=== PATIENT | female | born 1950 | race Caucasian/White ===

== ENCOUNTER → 2017-07-10 07:57 | Outpatient (CLI) | payer MEDICARE, OTHER, SELFPAY ==
[2017-07-10 14:02] LABS: Basophils # 0.1 K/mm3 (0-0.2); Basophils % 0.6 % (0.1-2.0); Eosinophils # 0.2 K/mm3 (0.0-0.4); Hematocrit 40.1 % (37.0-47.0); Hemoglobin 12.6 g/dL (12.2-16.2); Lymphocytes # 2.1 K/mm3 (0.7-4.5); Lymphocytes % 26.2 K/mm3 (10-50); Mean Corpuscular HGB Conc 31.5 g/dL (31.8-35.4); Mean Corpuscular Volume 89.1 fl (81-99); Mean Platelet Volume 7.5 fl (7.4-10.4); Monocytes # 0.6 K/mm3 (0.1-1.0); Monocytes % 7.1 % (1.7-9.3); Neutrophils % 63.1 % (37.0-80.0); Platelet Count 297 K/mm3 (142-424); Red Cell Distribution Width 14.2 % (11.5-17.5); White Blood Count 7.8 K/mm3 (4.8-10.8)
[2017-07-10 15:18] LABS: Alanine Aminotransferase 32 U/L (12-78); Albumin Level 3.7 gm/dL (3.4-5.0); Albumin/Globulin Ratio 1.3 (1.1-1.8); Alkaline Phosphatase 94 U/L (46-116); Anion Gap 11.1 mEq/L (5-15); Aspartate Amino Transferase 24 U/L (15-37); Bilirubin,Total 0.4 mg/dL (0.2-1.0); Blood Urea Nitrogen 12 mg/dL (7-18); Calcium 8.8 mg/dL (8.5-10.1); Carbon Dioxide 28 mmol/L (21.0-32.0); Chloride 109 mmol/L (98-107); Chol/HDL Ratio 2.7 (1-3.5); Cholesterol 178 mg/dL (140-200); Creatinine,Serum 0.67 mg/dL (0.55-1.02); Estimated Glomerular Filt Rate 88 ml/min (>60); Ferritin 35 ng/mL (8-388); GFR (African American) 106 ML/MIN (>60); Globulin 2.8 gm/dl (1.3-3.2); Glucose 75 mg/dL (74-106); HDL Cholesterol 67 mg/dL (29-89); LDL Cholesterol 97 mg/dL (0-130); Potassium 4.1 mmoL/L (3.5-5.1); Sodium 144 mmol/L (136-145); Thyroid Stimulating Hormone 2.03 uIU/ml (0.358-3.740); Total Protein,Serum 6.5 gm/dL (6.4-8.2); Triglycerides 72 mg/dL (30-200); VLDL Cholesterol 14 mg/dL (0-40)
[2017-07-12 11:08] LABS: Vitamin D 25 Hydroxy 44.1 ng/mL (30.0-100.0)
[2017-07-12 11:09] LABS: Vitamin B12 955 pg/mL (232-1245)
== END ==
PROVIDERS: PCP Internal Medicine Adolescent Medicine; Visit Provider Internal Medicine Adolescent Medicine
DX: M79.1 Myalgia (principal); E78.2 Mixed hyperlipidemia
CPT/HCPCS: 36415; 80053; 80061; 82607; 82652; 82728; 83735; 84443; 85025

== ENCOUNTER → 2018-09-29 08:22 | Outpatient (CLI) | payer MEDICARE, OTHER, SELFPAY ==
[2018-09-29 15:29] LABS: Alanine Aminotransferase 27 U/L (12-78); Albumin Level 3.7 gm/dL (3.4-5.0); Albumin/Globulin Ratio 1.2 (1.1-1.8); Alkaline Phosphatase 95 U/L (46-116); Anion Gap 14.4 mEq/L (5-15); Aspartate Amino Transferase 19 U/L (15-37); Bilirubin,Total 0.3 mg/dL (0.2-1.0); Blood Urea Nitrogen 14 mg/dL (7-18); Carbon Dioxide 26 mmol/L (21.0-32.0); Chloride 105 mmol/L (98-107); Chol/HDL Ratio 3.3 (1-3.5); Cholesterol 194 mg/dL (140-200); Creatinine,Serum 0.85 mg/dL (0.55-1.02); Estimated Glomerular Filt Rate 66 ml/min (>60); GFR (African American) 80 ML/MIN (>60); Globulin 3.2 gm/dl (1.3-3.2); Glucose 74 mg/dL (74-106); HDL Cholesterol 59 mg/dL (29-89); LDL Cholesterol 123 mg/dL (0-130); Potassium 4.4 mmoL/L (3.5-5.1); Sodium 141 mmol/L (136-145); Total Protein,Serum 6.9 gm/dL (6.4-8.2); Triglycerides 59 mg/dL (30-200); VLDL Cholesterol 12 mg/dL (0-40)
== END ==
PROVIDERS: PCP Nurse Practitioner Family; Visit Provider Nurse Practitioner Family
DX: R03.0 Elevated blood-pressure reading, without diagnosis of hypertension (principal); Z79.899 Other long term (current) drug therapy
CPT/HCPCS: 36415; 80053; 80061

== ENCOUNTER → 2019-12-11 08:02 | Outpatient (CLI) | payer MEDICARE, OTHER, SELFPAY ==
[2019-12-11 13:24] LABS: Basophils # 0.1 K/mm3 (0-0.2); Basophils % 1.5 % (0.1-2.0); Eosinophils # 0.2 K/mm3 (0.0-0.4); Eosinophils % 3.3 % (0.1-12.0); Hematocrit 42.1 % (37.0-47.0); Hemoglobin 13.7 g/dL (12.2-16.2); Lymphocytes # 2.6 K/mm3 (0.7-4.5); Mean Corpuscular HGB Conc 32.6 g/dL (31.8-35.4); Mean Corpuscular Hemoglobin 29.1 pg (27.0-31.2); Mean Corpuscular Volume 89.3 fl (81-99); Mean Platelet Volume 7.7 fl (7.4-10.4); Monocytes # 0.4 K/mm3 (0.1-1.0); Monocytes % 5.3 % (1.7-9.3); Neutrophils # 4.1 K/mm3 (1.8-7.8); Platelet Count 351 K/mm3 (142-424); Red Blood Count 4.72 M/mm3 (4.20-5.40); White Blood Count 7.4 K/mm3 (4.8-10.8)
[2019-12-11 13:37] LABS: Alanine Aminotransferase 20 U/L (12-78); Albumin Level 4.3 g/dl (3.5-5.0); Albumin/Globulin Ratio 1.4 (1.1-1.8); Alkaline Phosphatase 90 U/L (38-126); Anion Gap 9.7 mEq/L (5-15); Aspartate Amino Transferase 40 U/L (14-36); Bilirubin,Total 0.5 mg/dl (0.2-1.3); Blood Urea Nitrogen 13 mg/dl (7-17); Calcium 9.5 mg/dl (8.4-10.2); Carbon Dioxide 31 mmol/L (22.0-30.0); Chloride 99 mmol/L (98-107); Chol/HDL Ratio 2.8 (1-3.5); Cholesterol 215 mg/dl (140-200); Estimated Glomerular Filt Rate 71 ml/min (>60); GFR (African American) 86 ML/MIN (>60); Glucose 79 mg/dl (74-100); HDL Cholesterol 77 mg/dl (40-60); Potassium 4.7 mmoL/L (3.5-5.1); Sodium 135 mmol/L (136-145); Total Protein,Serum 7.3 g/dl (6.3-8.2); Triglycerides 77 mg/dl (30-150); VLDL Cholesterol 15 mg/dL (0-40)
[2019-12-11 13:48] LABS: Direct LDL Cholesterol 109.46 mg/dL (100-129)
[2019-12-11 13:54] LABS: 25-OH Vitamin D, Total 49.1 ng/mL (30-100)
== END ==
PROVIDERS: Visit Provider Nurse Practitioner Family
DX: R03.0 Elevated blood-pressure reading, without diagnosis of hypertension (principal); J41.1 Mucopurulent chronic bronchitis; M81.0 Age-related osteoporosis without current pathological fracture; Z79.899 Other long term (current) drug therapy
CPT/HCPCS: 36415; 80053; 80061; 82306; 85025

== ENCOUNTER → 2020-12-29 08:05 | Outpatient (CLI) | payer MEDICARE, OTHER, SELFPAY ==
[2020-12-29 13:46] LABS: Basophils # 0.1 K/mm3 (0-0.2); Basophils % 1.5 % (0.1-2.0); Eosinophils # 0.2 K/mm3 (0.0-0.4); Eosinophils % 2.4 % (0.1-12.0); Hematocrit 40.5 % (37.0-47.0); Hemoglobin 12.9 g/dL (12.2-16.2); Lymphocytes # 2.3 K/mm3 (0.7-4.5); Mean Corpuscular Hemoglobin 27.6 pg (27.0-31.2); Mean Corpuscular Volume 86.3 fl (81-99); Mean Platelet Volume 7.5 fl (7.4-10.4); Monocytes # 0.4 K/mm3 (0.1-1.0); Monocytes % 5.3 % (1.7-9.3); Neutrophils # 4.4 K/mm3 (1.8-7.8); Neutrophils % 59.9 % (37.0-80.0); Platelet Count 423 K/mm3 (142-424); Red Blood Count 4.69 M/mm3 (4.20-5.40); Red Cell Distribution Width 14.3 % (11.5-17.5); White Blood Count 7.4 K/mm3 (4.8-10.8)
[2020-12-29 14:06] LABS: Chloride 104 mmol/L (98-107); Potassium 4.5 mmoL/L (3.5-5.1); Sodium 140 mmol/L (136-145)
[2020-12-29 14:08] LABS: Alanine Aminotransferase 19 U/L (12-78); Aspartate Amino Transferase 33 U/L (14-36); Blood Urea Nitrogen 17 mg/dl (7-17); Estimated Glomerular Filt Rate 71 ml/min (>60); GFR (African American) 86 ML/MIN (>60)
[2020-12-29 14:09] LABS: Albumin/Globulin Ratio 1.5 (1.1-1.8); Alkaline Phosphatase 90 U/L (38-126); Anion Gap 13.5 mEq/L (5-15); Bilirubin,Total 0.4 mg/dl (0.2-1.3); Calcium 9.4 mg/dl (8.4-10.2); Carbon Dioxide 27 mmol/L (22.0-30.0); Cholesterol 191 mg/dl (140-200); Globulin 2.7 g/dL (1.3-3.2); Glucose 88 mg/dl (74-100); HDL Cholesterol 59 mg/dl (40-60); Total Protein,Serum 6.7 g/dl (6.3-8.2); Triglycerides 76 mg/dl (30-150); VLDL Cholesterol 15 mg/dL (0-40)
[2020-12-29 14:20] LABS: Direct LDL Cholesterol 97.59 mg/dL (100-129)
[2020-12-29 21:02] LABS: Chol/HDL Ratio 3.2 (1-3.5)
== END ==
PROVIDERS: Visit Provider Nurse Practitioner Family
DX: J41.1 Mucopurulent chronic bronchitis (principal); I10 Essential (primary) hypertension; M81.0 Age-related osteoporosis without current pathological fracture
CPT/HCPCS: 36415; 80053; 80061; 82306; 85025

== ENCOUNTER → 2021-01-30 09:03 | Outpatient (POV) | payer MEDICARE, OTHER, SELFPAY | PROVIDERS: Visit Provider Nurse Practitioner Family | DX: Z00.00 Encounter for general adult medical examination without abnormal findings (principal) ==

== ENCOUNTER → 2022-02-16 07:54 | Outpatient (CLI) | payer MEDICARE, OTHER, SELFPAY ==
[2022-02-16 18:35] LABS: Basophils # 0.1 K/mm3 (0-0.2); Basophils % 0.8 % (0.1-2.0); Eosinophils # 0.1 K/mm3 (0.0-0.4); Eosinophils % 0.4 % (0.1-12.0); Hematocrit 44.2 % (37.0-47.0); Hemoglobin 13.7 g/dL (12.2-16.2); Lymphocytes # 1.2 K/mm3 (0.7-4.5); Lymphocytes % 11.4 % (10-50); Mean Corpuscular Hemoglobin 27.3 pg (27.0-31.2); Mean Corpuscular Volume 87.9 fl (81-99); Mean Platelet Volume 8.5 fl (7.4-10.4); Monocytes # 0.4 K/mm3 (0.1-1.0); Monocytes % 3.5 % (1.7-9.3); Neutrophils % 83.9 % (37.0-80.0); Platelet Count 473 K/mm3 (142-424); Red Blood Count 5.03 M/mm3 (4.20-5.40); Red Cell Distribution Width 13.8 % (11.5-17.5); White Blood Count 10.7 K/mm3 (4.8-10.8)
[2022-02-16 19:15] LABS: Alanine Aminotransferase 23 U/L (12-78); Albumin Level 4.3 g/dl (3.5-5.0); Albumin/Globulin Ratio 1.5 (1.1-1.8); Alkaline Phosphatase 129 U/L (38-126); Anion Gap 12.5 mEq/L (5-15); Aspartate Amino Transferase 38 U/L (14-36); Bilirubin,Total 0.2 mg/dl (0.2-1.3); Blood Urea Nitrogen 13 mg/dl (7-17); Calcium 9.3 mg/dl (8.4-10.2); Carbon Dioxide 27 mmol/L (22.0-30.0); Chloride 102 mmol/L (98-107); Chol/HDL Ratio 2.9 (1-3.5); Cholesterol 196 mg/dl (140-200); Estimated Glomerular Filt Rate 82 ml/min (>60); GFR (African American) 100 ML/MIN (>60); Globulin 2.8 g/dL (1.3-3.2); Glucose 104 mg/dl (74-100); HDL Cholesterol 67 mg/dl (40-60); Magnesium 1.8 mg/dl (1.6-2.3); Potassium 4.5 mmoL/L (3.5-5.1); Sodium 137 mmol/L (136-145); Total Protein,Serum 7.1 g/dl (6.3-8.2); Triglycerides 82 mg/dl (30-150); VLDL Cholesterol 16 mg/dL (0-40)
[2022-02-16 19:26] LABS: Direct LDL Cholesterol 95.69 mg/dL (100-129)
[2022-02-16 19:31] LABS: Troponin I < 0.01 ng/ml (0.00-0.034)
== END ==
PROVIDERS: PCP Family Medicine; Visit Provider Student in an Organized Health Care Education/Training Program
DX: Z76.89 Persons encountering health services in other specified circumstances (principal); I49.9 Cardiac arrhythmia, unspecified; I10 Essential (primary) hypertension
CPT/HCPCS: 80053; 80061; 83735; 84484; 85025

== ENCOUNTER → 2022-02-27 10:04 | Outpatient (CLI) | payer MEDICARE, OTHER, SELFPAY ==
[2022-02-27 12:08] LABS: Free T4 (Free Thyroxine) 1.06 ng/dl (0.78-2.19)
[2022-02-27 12:22] LABS: Thyroid Stimulating Hormone 1.82 uIU/mL (0.465-4.68)
== END ==
PROVIDERS: PCP Student in an Organized Health Care Education/Training Program; Visit Provider Physician Assistant
DX: R00.2 Palpitations (principal); R94.31 Abnormal electrocardiogram [ECG] [EKG]
CPT/HCPCS: 36415; 84439; 84443; 93225

== ENCOUNTER → 2022-03-05 10:38 | Outpatient (CLI) | payer MEDICARE, OTHER, SELFPAY ==
--- NOTE | 2022-03-05 10:39 | CA_ITS ---
APPROVED REPORT EXAM: Comprehensive 2D, Doppler, and color-flow Echocardiogram Leader Assembler: Denise Chang, YVES, RVS Ht: 5 ft 6 in Wt: 123lbs BSA: 1.63 BP: 167/92 mmHg Indications: Palpitations, HTN, ABN EKG, GERD 2D Dimensions Aortic Root 3.31 cm LA Volume 59.70 mL Left Atrium 3.49 cm LA Volume Index 36.60 mL/m2 (M/F) 16-34 LVOT 2.17 cm (M/F) 1.5-2.5 M-Mode Dimensions RVDd 2.64 cm (0.9-2.6) LA Diam 3.52 cm (1.9-4.0) LVDd 4.64 cm (3.5-5.7) Ao Diam 3.44 cm (2.0-3.7) LVDs 3.04 cm (3.5-5.7) IVSd 0.82 cm (0.6-1.1) PWd 0.79 cm (0.6-1.1) EF (Teich) 63.50% EPSs 0.54 cm FS 34.50% EDV (Teich) 99.30 mL TAPSE 3.06 (<1.7) ESV (Teich) 36.20 mL LV Diastology E Decel Time 103.00 (160-240 msec) E/A Ratio 2.13 MED E' 11.10 (< 7 cm/sec) MED A' 12.20 cm/s E'/MED E' Ratio 12.54 (>14) LAT E' 12.40 (<10 cm/sec) LAT A' 15.30 cm/s E/LAT E' Ratio 11.23 (>14) Aortic Valve LVOT Max 107.00 (70-110 cm/s) LVOT VTI 24.01 cm AoV Peak Zafar. 132.00 (50-130 cm/s) AI PHT 439.00 ms AO Peak GR. 7.00 mmHg AO Mean GR. 3.50 (<5 mmHg) AO VTI 31.63 (18-25 cm) LUIS (VTI) 2.81 (2.5-4.5 cm2) Mitral Valve MV A Velocity 65.00 (40-130 cm/s) E/A Ratio 2.13 MV Decel. Time 103.00 (160-240 ms) Pulmonary Valve PV Peak Velocity 61.00 (50-150 cm/s) Tricuspid Valve TR P. Velocity 207.00 cm/s RAP Estimate 10.00 mmHg RVSP 27.10 mmHg Left Ventricle Left atrium is mildly enlarged, left ventricle is normal size, left ventricle wall thickness is upper limit of normal, there is preserved left ventricular systolic function, estimated ejection fraction 55% with no regional wall motion abnormality. Diastolic parameters are inconclusive. Right Ventricle Right atrium and right ventricle are normal size and contractility. Aortic Valve Aortic valve is minimally thickened and calcified without aortic stenosis, there is mild aortic insufficiency. Mitral Valve Mitral valve grossly normal, there is mild mitral regurgitation. Tricuspid Valve Tricuspid valve grossly normal, there is mild tricuspid regurgitation, tricuspid regurgitation jet velocity is inadequate for calculation of the right ventricular systolic pressure. Pulmonic Valve Pulmonic valve is poorly visualized. Great Vessels Aortic root is normal size. Inferior vena cava is poorly visualized. Pericardium No significant pericardial effusion noted. Conclusion 1. Normal left ventricular size preserved left ventricular systolic function, estimated ejection fraction 55% with no regional wall motion abnormality, diastolic parameters are inconclusive. 2. Mild aortic, mitral and tricuspid regurgitation. 3. No significant pericardial effusion noted. 4. Inferior vena cava is poorly visualized. Electronically signed by : Nathanael Alanis MD 03/05/2022 12:51:21
== END ==
PROVIDERS: PCP Student in an Organized Health Care Education/Training Program; Visit Provider Physician Assistant
DX: R00.2 Palpitations (principal); R94.31 Abnormal electrocardiogram [ECG] [EKG]
CPT/HCPCS: 93306

== ENCOUNTER → 2022-03-21 07:12 | Outpatient (CLI) | payer MEDICARE, OTHER, SELFPAY ==
--- NOTE | 2022-03-21 | CA_ITS ---
APPROVED REPORT Exam: Exercise Treadmill Technologist: Clementina Richmond, Ht: 5 ft 6 in Wt: 131 lbs BSA: 1.67 m2 HR: 78 bpm BP: 166/75 mmHg Rhythm: NSR, FREQUENT PACS, LEFT POSTERIOR FASCICULAR BLOCK Indications: CP, PALPITATIONS Medical History Medications: Omeprazole,,,,, Vitamin C,,,,, Citalopram,,,,, Buspirone,,,,, Albuterol,,,,, Montelukast,,,,, Vit D3,,,,, Vit B12,,,,, Metoprolol ER,,,,, Levocetirizine,,,,, AZITHROMYCIN,,,,, Budesonide,,,,, Allergies: CEFOXITIN, VORICONAZOLE, LEVOFLOXACIN, LINEZOLID Cardiac Risk Factors: FHX of CAD Stress Test Details Test: Manual Treadmill HR Resting HR: 86 bpm Max Heart Rate (APMHR): 148.689233 bpm Max HR Achieved: 161 bpm Target HR (85% APMHR): 125.641376 bpm % of APMHR: 108.78 Recovery HR: 78 bpm BP Resting BP: 166/75 mmHg Max BP: 170/70 mmHg Recovery BP: 153.0/75.0 mmHg ECG Resting ECG: NSR, FREQUENT PACS, LEFT POSTERIOR FASCICULAR BLOCK Clinical Exercise duration: 07:31 min Highest Stage Achieved: Exercise capacity: 7.5 METs Stress ECG Conclusion PT EXERCISED 7:31 TOTAL, 6 MINUTES IN ADAM PROTOCOL AND 1:31 IN MANUAL PROTOCOL. MAX GRADE 12%. MAX SPEED 2.9 MPH MAX HR: 111 % OF PM: 75 MAX B/P: 170/70 METS: 7.5 TEST STOPPED DUE TO: SOA, FATIGUE NO CP FREQUENT ISOLATED PACS. RUNS OF NON-SUSTAINED SVT, MOSTLY RARE PVC IN RECOVERY PHASE NON SPECIFIC T WAVE CHANGES IN LEADS III AND AVF PROBABLY NORMAL GXT TO HR ACHIEVED (75% OF PM) BLUNTED HR ON BETA-AJ MYOIVEW IMAGES REPORTED SEPARATELY Test Summary REST . . . . . . . Standing REST . . . . . . . Sitting REST 05:57 0.0 0.0 86 . 166/ 75 . . Stage 1 01:00 10.0 1.7 86 . . . . Stage 1 02:00 10.0 1.7 96 . . . . Stage 1 03:00 10.0 1.7 99 . 170/ 70 . . Stage 2 01:00 12.0 2.5 108 . . . . Stage 2 02:00 12.0 2.5 161 . . . . Stage 2 . . . . . . . Stage held Stage 2 03:00 12.0 2.5 109 . . . . Stage 2 . . . . . . . Protocol changed to Manual Treadmill Stage 2 04:00 12.0 2.9 109 . . . . Stage 2 . . . . . . . Stage resumed Stage 2 04:31 12.0 2.9 111 . . . Stop exercise at 07:31 RECOVERY 01:00 0.0 0.0 104 . . . . RECOVERY 02:00 0.0 0.0 136 . 161/ 86 . . RECOVERY 03:00 0.0 0.0 85 . 161/ 86 . . RECOVERY 04:00 0.0 0.0 84 . 151/ 81 . . RECOVERY 05:00 0.0 0.0 78 . 151/ 81 . . RECOVERY 05:55 0.0 0.0 76 . 153/ 75 . . Electronically signed by : Nathanael Alanis MD 03/22/2022 06:40:20
--- NOTE | 2022-03-21 07:12 | NM_ITS ---
APPROVED REPORT Exam: Nuclear Stress Test Indication: C.P., PALPATATIONS, ABN EKG, HTN, FM HX, BRONCHIECTASIS Patient Location: Outpatient Stress Tech: Clementina Richmond GA Tech:Velia KatNIGHAT RT (R)(N)(M) Ht: 5 ft 6 in Wt: 131 lbs Bra Size: 36C HR: 78 bpm BP: 166/75 mmHg BSA: 1.67 m2 TID: 1.10 BMI: 21.1 History: C.P., PALPATATIONS, ABN EKG, HTN, FM HX, BRONCHIECTASIS Procedure: Patient exercised on Agustin protocol 7:30 minutes and sec, resting heart rate 78 bpm, resting blood pressure 166/75 mmHg, with exercise maximum heart rate achived was 111 bpm which is 75 % of the maximum predicted heart rate and blood pressure was 170/70 mmHg. Test was stopped due to LEG FATIGUE, SOA. Patient denied any complaint of chest pain. Patient has Adequate exercise capacity, achieved 7.5 METs of workload on treadmill, the blood pressure response to exercise was Abnormal. Electrocardiogram Resting electrocardiogram shows sinus rhythm with exercise frequent ectopic beats and nonsustained supraventricular tachycardia seen, there is less than 1.[address] segment depression noted from the baseline EKG. The EKG portion of the exercise Myoview was nondiagnostic as patient did not achieve the target heart rate. Cardiac Stress and Resting SPECT Images: Cardiac Stress and Resting SPECT images were obtained using technetium 99m Myoview 31.9 mCi stress and 10.77 mCi at rest. Gated SPECT for analysis of segmental wall motion and calculation of the ejection fraction also done. Prone images were also obtained. Cardiac stress and rest SPECT images show uniform myocardial activity without segmental perfusion abnormality, computer derived ejection fraction is 43%, with no regional wall motion abnormality however due to presence of frequent ectopic beats the gated SPECT may underestimate the ejection fraction. Right ventricle is normal size and contractility. Conclusion: 1. The EKG portion of the exercise Myoview was nondiagnostic as patient did not achieve the target heart rate, patient has adequate exercise capacity to 7.5 METS of workload on treadmill, the blood pressure response to exercise was abnormal, patient denies any complaint of chest pain with exercise. 2. No scintigraphic evidence of reversible ischemia seen at this level of exercise, computer derived ejection fraction is 43% with no regional wall motion abnormality however during this acquisition frequent ectopic beats were present that may underestimate the ejection fraction by gated SPECT, an echocardiogram will be better modality to evaluate left ventricular systolic function. 3. Likely normal exercise Myoview study at submaximal heart rate. Electronically signed by : Nathanael Alanis MD 03/22/2022 06:45:17
== END ==
PROVIDERS: PCP Student in an Organized Health Care Education/Training Program; Visit Provider Nurse Practitioner Family
DX: J47.9 Bronchiectasis, uncomplicated (principal); R00.2 Palpitations; R07.89 Other chest pain; R94.31 Abnormal electrocardiogram [ECG] [EKG]
CPT/HCPCS: 78452; 93017; A9502

== ENCOUNTER → 2022-08-09 06:29 | Outpatient (CLI) | payer MEDICARE, OTHER, SELFPAY ==
[2022-08-09 16:55] LABS: Basophils # 0.1 K/mm3 (0-0.2); Basophils % 0.8 % (0.1-2.0); Eosinophils # 0.2 K/mm3 (0.0-0.4); Eosinophils % 2.2 % (0.1-12.0); Hemoglobin 13.2 g/dL (12.2-16.2); Lymphocytes # 1.7 K/mm3 (0.7-4.5); Lymphocytes % 23.2 % (10-50); Mean Corpuscular HGB Conc 31.4 g/dL (31.8-35.4); Mean Corpuscular Hemoglobin 27.9 pg (27.0-31.2); Mean Corpuscular Volume 88.9 fl (81-99); Mean Platelet Volume 8.6 fl (7.4-10.4); Monocytes # 0.5 K/mm3 (0.1-1.0); Monocytes % 6.9 % (1.7-9.3); Neutrophils # 4.9 K/mm3 (1.8-7.8); Neutrophils % 66.8 % (37.0-80.0); Platelet Count 397 K/mm3 (142-424); Red Blood Count 4.73 M/mm3 (4.20-5.40); Red Cell Distribution Width 14.3 % (11.5-17.5); White Blood Count 7.4 K/mm3 (4.8-10.8)
[2022-08-09 16:57] LABS: Alanine Aminotransferase 18 U/L (12-78); Albumin Level 4.1 g/dl (3.5-5.0); Albumin/Globulin Ratio 1.6 (1.1-1.8); Alkaline Phosphatase 89 U/L (38-126); Anion Gap 7.7 mEq/L (5-15); Aspartate Amino Transferase 34 U/L (14-36); Bilirubin,Total 0.5 mg/dl (0.2-1.3); Blood Urea Nitrogen 15 mg/dl (7-17); Calcium 8.9 mg/dl (8.4-10.2); Carbon Dioxide 29 mmol/L (22.0-30.0); Chloride 103 mmol/L (98-107); Chol/HDL Ratio 3.1 (1-3.5); Cholesterol 190 mg/dl (140-200); Estimated Glomerular Filt Rate 71 ml/min (>60); GFR (African American) 85 ML/MIN (>60); Globulin 2.6 g/dL (1.3-3.2); Glucose 85 mg/dl (74-100); HDL Cholesterol 61 mg/dl (40-60); Potassium 4.7 mmoL/L (3.5-5.1); Sodium 135 mmol/L (136-145); Total Protein,Serum 6.7 g/dl (6.3-8.2); Triglycerides 100 mg/dl (30-150); VLDL Cholesterol 20 mg/dL (0-40)
[2022-08-09 17:08] LABS: Direct LDL Cholesterol 93.05 mg/dL (100-129)
== END ==
PROVIDERS: PCP Family Medicine; Visit Provider Family Medicine
DX: Z00.00 Encounter for general adult medical examination without abnormal findings (principal); I10 Essential (primary) hypertension; Z79.899 Other long term (current) drug therapy
CPT/HCPCS: 80053; 80061; 85025

== ENCOUNTER 2023-07-01 16:41 | Outpatient (CLI) | payer MEDICARE, OTHER, SELFPAY | END 2023-07-01 23:59 | PROVIDERS: PCP Family Medicine; Visit Provider Family Medicine | DX: R30.0 Dysuria (principal) | CPT/HCPCS: 87086 ==

== ENCOUNTER 2023-07-08 18:52 | Outpatient (CLI) | payer MEDICARE, OTHER, SELFPAY | END 2023-07-08 23:59 | PROVIDERS: PCP Family Medicine; Visit Provider Family Medicine | DX: R10.9 Unspecified abdominal pain (principal) | CPT/HCPCS: 87086 ==

== ENCOUNTER 2023-08-14 16:48 | Outpatient (CLI) | payer MEDICARE, OTHER, SELFPAY ==
[2023-08-14 16:36] LABS: Basophils # 0.1 K/mm3 (0-0.2); Basophils % 0.8 % (0.1-2.0); Eosinophils # 0.1 K/mm3 (0.0-0.4); Eosinophils % 1.9 % (0.1-12.0); Hematocrit 42.8 % (37.0-47.0); Hemoglobin 13.5 g/dL (12.2-16.2); Lymphocytes # 1.8 K/mm3 (0.7-4.5); Lymphocytes % 24.2 % (10-50); Mean Corpuscular HGB Conc 31.5 g/dL (31.8-35.4); Mean Corpuscular Hemoglobin 29.5 pg (27.0-31.2); Mean Corpuscular Volume 93.5 fl (81-99); Mean Platelet Volume 8.1 fl (7.4-10.4); Monocytes # 0.5 K/mm3 (0.1-1.0); Monocytes % 6.5 % (1.7-9.3); Neutrophils # 5.1 K/mm3 (1.8-7.8); Neutrophils % 66.6 % (37.0-80.0); Platelet Count 331 K/mm3 (142-424); Red Blood Count 4.58 M/mm3 (4.20-5.40); Red Cell Distribution Width 14.2 % (11.5-17.5); White Blood Count 7.6 K/mm3 (4.8-10.8)
[2023-08-14 16:42] LABS: Alanine Aminotransferase 21 U/L (12-78); Albumin Level 4.2 g/dl (3.5-5.0); Albumin/Globulin Ratio 1.8 (1.1-1.8); Alkaline Phosphatase 100 U/L (38-126); Anion Gap 10.8 mEq/L (5-15); Aspartate Amino Transferase 36 U/L (14-36); Bilirubin,Total 0.4 mg/dl (0.2-1.3); Blood Urea Nitrogen 14 mg/dl (7-17); Calcium 9.3 mg/dl (8.4-10.2); Carbon Dioxide 27 mmol/L (22.0-30.0); Chloride 104 mmol/L (98-107); Chol/HDL Ratio 3.3 (1-3.5); Cholesterol 207 mg/dl (140-200); Estimated Glomerular Filt Rate 70 ml/min (>60); GFR (African American) 85 ML/MIN (>60); Globulin 2.4 g/dL (1.3-3.2); Glucose 86 mg/dl (74-100); HDL Cholesterol 62 mg/dl (40-60); Potassium 4.8 mmoL/L (3.5-5.1); Sodium 137 mmol/L (136-145); Total Protein,Serum 6.6 g/dl (6.3-8.2); Triglycerides 74 mg/dl (30-150); VLDL Cholesterol 15 mg/dL (0-40)
== END 2023-08-14 23:59 ==
LOC: LAB.DROPOF 16:49
PROVIDERS: PCP Family Medicine; Visit Provider Family Medicine
DX: J98.4 Other disorders of lung (principal); I10 Essential (primary) hypertension; Z79.899 Other long term (current) drug therapy
CPT/HCPCS: 80053; 80061; 85025

== ENCOUNTER 2024-02-17 12:29 | Outpatient (CLI) | payer MEDICARE, OTHER, SELFPAY ==
[2024-02-17 17:06] LABS: Basophils # 0.1 K/mm3 (0-0.2); Basophils % 0.8 % (0.1-2.0); Eosinophils # 0.2 K/mm3 (0.0-0.4); Eosinophils % 2.3 % (0.1-12.0); Hematocrit 44.2 % (37.0-47.0); Hemoglobin 13.3 g/dL (12.2-16.2); Lymphocytes # 1.3 K/mm3 (0.7-4.5); Lymphocytes % 17.1 % (10-50); Mean Corpuscular HGB Conc 30.1 g/dL (31.8-35.4); Mean Corpuscular Hemoglobin 28.5 pg (27.0-31.2); Mean Corpuscular Volume 94.7 fl (81-99); Mean Platelet Volume 8.6 fl (7.4-10.4); Monocytes # 0.5 K/mm3 (0.1-1.0); Monocytes % 6.1 % (1.7-9.3); Neutrophils # 5.5 K/mm3 (1.8-7.8); Neutrophils % 73.8 % (37.0-80.0); Platelet Count 451 K/mm3 (142-424); Red Blood Count 4.67 M/mm3 (4.20-5.40); Red Cell Distribution Width 14.1 % (11.5-17.5); White Blood Count 7.5 K/mm3 (4.8-10.8)
[2024-02-17 17:48] LABS: Alanine Aminotransferase 19 U/L (12-78); Albumin Level 3.9 g/dl (3.5-5.0); Albumin/Globulin Ratio 1.3 (1.1-1.8); Alkaline Phosphatase 92 U/L (38-126); Anion Gap 7.7 mEq/L (5-15); Aspartate Amino Transferase 33 U/L (14-36); Bilirubin,Total 0.5 mg/dl (0.2-1.3); Blood Urea Nitrogen 12 mg/dl (7-17); Calcium 9.3 mg/dl (8.4-10.2); Carbon Dioxide 31 mmol/L (22.0-30.0); Chloride 101 mmol/L (98-107); Chol/HDL Ratio 2.7 (1-3.5); Cholesterol 199 mg/dl (140-200); Estimated Glomerular Filt Rate 82 ml/min (>60); GFR (African American) 99 ML/MIN (>60); Globulin 2.9 g/dL (1.3-3.2); Glucose 72 mg/dl (74-100); HDL Cholesterol 73 mg/dl (40-60); Potassium 5.7 mmoL/L (3.5-5.1); Sodium 134 mmol/L (136-145); Total Protein,Serum 6.8 g/dl (6.3-8.2); Triglycerides 75 mg/dl (30-150); VLDL Cholesterol 15 mg/dL (0-40)
[2024-02-17 17:59] LABS: Direct LDL Cholesterol 91.73 mg/dL (100-129)
== END 2024-02-17 23:59 | disposition home or self-care (01) ==
LOC: LAB.DROPOF 02-18 12:30
PROVIDERS: PCP Family Medicine; Visit Provider Family Medicine
DX: I10 Essential (primary) hypertension (principal)
CPT/HCPCS: 80053; 80061; 85025

== ENCOUNTER 2025-02-15 08:55 | Outpatient (CLI) | payer MEDICARE, OTHER, SELFPAY ==
--- OUTSIDE RECORDS SUMMARY | 2016-02-08 09:29 | XMS_ITS | Encounter Summary ---
[facility] Address [address] [place] [address] Care Team Providers Care Commercial Front Load Driver Name Role Phone Brad Valles MD Primary Care Provider [phone] Encounter Details Date Type Department Care Team (Late st Contact Info) Description 02/08/2016 9:29 AM EDT Hospital Encounter [facility] PULMONARY & CRITICAL CARE MEDICINE [address] [place] [phone] Social History Tobacco Use Types Packs/Day Years Used Date Smoking Tobacco: Former Cigarettes Q uit: 1971 Passive Smoke Exposure: Past Alcohol Use Standard Drinks/Week Comments No 0 (1 standard drink = 0.6 oz pur e alcohol) AUDIT-C Answer Date Recorded Q1: How often do you have a drink containing alcohol? Never 09/12/2023 Q2: How many drinks containi ng alcohol do you have on a typical day when you are drinking? Patient does not drink Q3: How often do you have si x or more drinks on one occasion? Never 09/12/2023 Abuse Screen Answer Date Recorded Feels Unsafe at Home or Work/School no 10/21/2023 Feels Threatened by Someone no 10/08 Does Anyone Try to Keep You From Having Contact with Others or Doing Things Outside Your Home? no 10/21/2023 Physical Signs of Abuse Present no 10/21/2023 Housing Stability Answer Date Recorded Current Living Arrangements home 09/2023 Potentially Unsafe Housing Conditions Not on zoran e 09/12/2023 Disabilities Answer Date Recorded Difficulty Concentrating, Remembering or Making Decisions no 09/12/2023 Difficulty Managing Errands Independently no 09/12/2023 Education Answer Date Recorded Help with school or training? Not on file Preferred Language Persian 09/05/2023 PHQ-2 Answer Date Recorded Patient Health Questionnaire-9 Score 0 08/04/2024 Comments No Sex and Gender Information Value Date Recorded Sex Assigned at Female 10/28/2024 11:34 AM EDT Legal Sex Female 1:14 PM EDT Gender Identity Not on file Sexual Orientation Not on file documented as of this encounter Functional Status documented as of this encounter Plan of Treatment Upcoming Encounters Date Type Department Care Team (Late st Contact Info) Description 03/16/2025 10:45 AM EDT Registration [facility] PULMONARY & CRITICAL CARE MEDICINE [address] [facility] [address] [place] [address] 03/16/2025 11:00 AM EDT Office Visit [facility] PULMONARY & CRITICAL CARE MEDICINE [address] [facility] [address] [place] [address] Dana David, HOUSEHOLD REFRIGERATION MECHANIC [address] [place] [address] 05/03/2025 11:30 AM EST Office [facility] [address] [place] [address] Tammi Goins, HOUSEHOLD REFRIGERATION MECHANIC [address] [place] [address] 07/27/2025 10:30 AM EST Office Visit [facility] GYNECOLOGIC ONCOLOGY [address] [facility] [address] [place] [address] Dara Taylor, HOUSEHOLD REFRIGERATION MECHANIC 17[address] [facility] [address] [place] [address] documented as of this encounter Procedures Procedure Name Priority Date/Time Associated Diagnosis Comments XR CHEST PA AND LATERAL Routine 02/08/2016 9:34 AM EDT Bronchiectasis without complication documented in this encounter Results * XR chest pa and lateral (02/08/2016 9:34 AM EDT) Narrative Adore Tidwell MA - 02/08/2016 9:34 AM EDT Results sent to hostess host, signed report will be scanned into [employer] once available. Please see performing physicians notes. Jigar Roth MD IMG DIAGNOSTIC IMAGING ORDERABLES Final Result documented in this encounter Visit Diagnoses Not on filedocumented in this encounter Additional Health Concerns Infection Onset Date Last Indicated Resolved Time COVID (rule out) 10/27/2020 10/28/2020 11/03/2020 9:08 PM EDT COVID (rule out) 02/06/2024 02/06/2024 02/06/2024 1:05 PM EDT documented as of this encounter Care Teams Commercial Front Load Driver Relationship Specialty Start Date End Date Brad Valles MD [address] [place] [address] [address] [place] [address] PCP - General 08/15/15 07/09/23 documented as of this encounter
--- OUTSIDE RECORDS SUMMARY | 2016-06-18 11:21 | XMS_ITS | Encounter Summary ---
[facility] Address [address] [place] [address] Care Team Providers Care Telephone Supervisor Name Role Phone Brad Valles MD Primary Care Provider [phone] Encounter Details Date Type Department Care Team (Late st Contact Info) Description 06/18/2016 10:21 AM EST Hospital Encounter [facility] PULMONARY & CRITICAL CARE MEDICINE [address] [place] [phone] Social History Tobacco Use Types Packs/Day Years [...] or training? Not on file Preferred Language Macedonian 09/05/2023 PHQ-2 Answer Date Recorded Patient Health [...] Info) Description 03/16/2025 10:45 AM EDT Registration [facility] PULMONARY & CRITICAL CARE MEDICINE [address] [facility] [address] [place] [address] 03/16/2025 11:00 AM EDT Office Visit [facility] PULMONARY & CRITICAL CARE MEDICINE [address] [facility] [address] [place] [address] Dana David, OVEN UNLOADER [address] [place] [address] 05/03/2025 11:30 AM EST Office [facility] [address]00 [place] [address] Tammi Goins, OVEN UNLOADER [address] [place] [address] 07/27/2025 10:30 AM EST Office Visit [facility] GYNECOLOGIC ONCOLOGY [address] [facility] [address] [place] [address] Dara Taylor, OVEN UNLOADER [address] [facility] [address] [place] [address] documented as of this encounter Procedures Procedure Name Priority Date/Time Associated Diagnosis Comments XR CHEST PA AND LATERAL Routine 06/18/2016 10:42 AM EST Cough documented in this encounter Results * XR Chest PA & Lateral (06/18/2016 10:42 AM EST) Narrative Adore Tidwell MA - 06/18/2016 10:42 AM EST Results sent to process developer, signed report will be scanned into [employer] once available. Please see performing physicians notes. us Sharmaine Baugh APRN IMG DIAGNOSTIC IMAGING ORDOsvaldo ARIAS Final Result documented in this encounter Visit Diagnoses Not on filedocumented in this encounter Additional Health Concerns Infection Onset Date Last Indicated Resolved Time COVID (rule out) 10/27/2020 10/28/2020 11/03/2020 9:08 PM EDT COVID (rule out) 02/06/2024 02/06/2024 02/06/2024 1:05 PM EDT documented as of this encounter Care Teams Telephone Supervisor Relationship Specialty Start Date End Date Brad Valles MD [address] [place] [address] [address] [place] [address] PCP - General 08/15/15 07/09/23 documented as of this encounter
--- OUTSIDE RECORDS SUMMARY | 2017-01-23 09:57 | XMS_ITS | Encounter Summary ---
[facility] Address [address] [place] [address] Care Team Providers Care Gear Setter Name Role Phone Brad Valles MD Primary Care Provider [phone] Encounter Details Date Type Department Care Team (Late st Contact Info) Description 01/23/2017 9:57 AM EDT Hospital Encounter [facility] PULMONARY & CRITICAL CARE MEDICINE [address] [place] [phone] Social History Tobacco Use Types Packs/Day Years [...] or training? Not on file Preferred Language Azeri 09/05/2023 PHQ-2 Answer Date Recorded Patient Health [...] Info) Description 03/16/2025 10:45 AM EDT Registration [facility] PULMONARY & CRITICAL CARE MEDICINE [address] [facility] [address] [place] [address] 03/16/2025 11:00 AM EDT Office Visit [facility] PULMONARY & CRITICAL CARE MEDICINE [address] [facility] [address] [place] [address] Dana David, ANGLE BENDER [address] [place] [address] 05/03/2025 11:30 AM EST Office Visit [facility] [address]00 [place] [address] Tammi Goins, ANGLE BENDER [address]00 [place] [address] 07/27/2025 10:30 AM EST Office Visit [facility] GYNECOLOGIC ONCOLOGY [address] [facility] [address] [place] [address] Dara Taylor, ANGLE BENDER [address] [facility] [address] [place] [address] documented as of this encounter Procedures Procedure Name Priority Date/Time Associated Diagnosis Comments XR CHEST PA AND LATERAL Routine 01/23/2017 10:13 AM EDT Bronchiectasis documented in this encounter Results * XR Chest PA & Lateral (01/23/2017 10:13 AM EDT) Anatomical Region Laterality Modality Body, Chest N/A Radiographic Cristal ging Jigar Roth MD IMG DIAGNOSTIC IMAGING ORDERABLES Final Result documented in this encounter Visit Diagnoses Not on filedocumented in this encounter Additional Health Concerns Infection Onset Date Last Indicated Resolved Time COVID (rule out) 10/27/2020 10/28/2020 11/03/2020 9:08 PM EDT COVID (rule out) 02/06/2024 02/06/2024 02/06/2024 1:05 PM EDT documented as of this encounter Care Teams Gear Setter Relationship Specialty Start Date End Date Brad Valles MD [address] [place] [address] [address] PCP - General 08/15/15 07/09/23 documented as of this encounter
--- OUTSIDE RECORDS SUMMARY | 2017-04-10 09:55 | XMS_ITS | Encounter Summary ---
[facility] Address [address] [place] [address] Care Team Providers Care Patient Account Specialist Name Role Phone Brad Valles MD Primary Care Provider [phone] Encounter Details Date Type Department Care Team (Late st Contact Info) Description 04/10/2017 9:55 AM EDT Hospital Encounter [facility] PULMONARY & CRITICAL CARE MEDICINE [address] [place] [phone] Social History Tobacco Use Types Packs/Day Years [...] or training? Not on file Preferred Language Amharic 09/05/2023 PHQ-2 Answer Date Recorded Patient Health [...] Info) Description 03/16/2025 10:45 AM EDT Registration [facility] PULMONARY & CRITICAL CARE MEDICINE [address] [facility] [address] [place] [address] 03/16/2025 11:00 AM EDT Office Visit [facility] PULMONARY & CRITICAL CARE MEDICINE [address] [facility] [address] [place] [address] Dana David, SWEET GOODS MACHINE OPERATOR [address] [place] [address] 05/03/2025 11:30 AM EST Office Visit [facility] [address]00 [place] [address] Tammi Goins, SWEET GOODS MACHINE OPERATOR 1700 [place] [address] 07/27/2025 10:30 AM EST Office Visit [facility] GYNECOLOGIC ONCOLOGY [address] [facility] [address] [place] [address] Dara Taylor, SWEET GOODS MACHINE OPERATOR 17[address] [facility] [address] [place] [address] documented as of this encounter Procedures Procedure Name Priority Date/Time Associated Diagnosis Comments XR CHEST PA AND LATERAL Routine 04/10/2017 10:04 AM EDT Bronchiectasis documented in this encounter Results * XR Chest PA & Lateral (04/10/2017 10:04 AM EDT) Anatomical Region Laterality Modality Body, [...] documented as of this encounter Care Teams Patient Account Specialist Relationship Specialty Start Date End Date Brad Valles MD [address] [place] [address] [address] PCP - General 08/15/15 07/09/23 documented as of this encounter
--- OUTSIDE RECORDS SUMMARY | 2017-10-21 09:36 | XMS_ITS | Encounter Summary ---
[facility] [address] [place] [address] Care Team Providers Care Corporate Strategy Analyst Name Role Phone Brad Valles MD Primary Care Provider [phone] Encounter Details Date Type Department Care Team (Late st Contact Info) Description 10/21/2017 9:36 AM EDT Hospital Encounter [facility] PULMONARY & CRITICAL CARE MEDICINE [address] [place] [phone] Social History Tobacco Use Types Packs/Day Years [...] or training? Not on file Preferred Language Setswana 09/05/2023 PHQ-2 Answer Date Recorded Patient Health [...] Info) Description 03/16/2025 10:45 AM EDT Registration [facility] PULMONARY & CRITICAL CARE MEDICINE [address] [facility] [address] [place] [address] 03/16/2025 11:00 AM EDT Office Visit [facility] PULMONARY & CRITICAL CARE MEDICINE [address] [facility] [address] [place] [address] Dana David, HEALTH PROGRAM DIRECTOR [address] [place] [address] 05/03/2025 11:30 AM EST Office Visit [facility] [address]00 [place] [address] Tammi Goins, HEALTH PROGRAM DIRECTOR [address] [place] [address] 07/27/2025 10:30 AM EST Office Visit [facility] GYNECOLOGIC ONCOLOGY [address]00 [facility] [address] [place] [address] Dara Taylor, HEALTH PROGRAM DIRECTOR [address] [facility] [address] [place] [address] documented as of this encounter Procedures Procedure Name Priority Date/Time Associated Diagnosis Comments XR CHEST PA AND LATERAL Routine 10/21/2017 9:45 A M EDT Bronchiectasis documented in this encounter Results * XR Chest PA & Lateral (10/21/2017 9:45 AM EDT) Anatomical Region Laterality Modality Body, [...] documented as of this encounter Care Teams Corporate Strategy Analyst Relationship Specialty Start Date End Date Brad Valles MD [address] [place] [address] [address] PCP - General 08/15/15 07/09/23 documented as of this encounter
--- OUTSIDE RECORDS SUMMARY | 2018-05-19 10:09 | XMS_ITS | Encounter Summary ---
[facility] Address [address] [place] [address] Care Team Providers Care Senior Branch Manager Name Role Phone Brad Valles MD Primary Care Provider [phone] Encounter Details Date Type Department Care Team (Late st Contact Info) Description 05/19/2018 9:09 AM EST Hospital Encounter [facility] PULMONARY & CRITICAL CARE MEDICINE [address] [place] [phone] Social History Tobacco Use Types Packs/Day Years [...] or training? Not on file Preferred Language Croatian 09/05/2023 PHQ-2 Answer Date Recorded Patient Health [...] Info) Description 03/16/2025 10:45 AM EDT Registration [facility] PULMONARY & CRITICAL CARE MEDICINE [address] [facility] [address] [place] [address] 03/16/2025 11:00 AM EDT Office Visit [facility] PULMONARY & CRITICAL CARE MEDICINE [address] [facility] 240 [place] [address] Dana David, GRANTS ANALYST [address] [place] [address] 05/03/2025 11:30 AM EST Office Visit [facility] [address]00 [place] [address] Tammi Goins, GRANTS ANALYST [address] [place] [address] 07/27/2025 10:30 AM EST Office Visit [facility] GYNECOLOGIC ONCOLOGY [address] [facility] [address] [place] [address] Dara Taylor, GRANTS ANALYST [address]00 [facility] [address] [place] [address] Pending Results Name Type Priority Associated Diagnoses Date /Time XR Chest PA & Lateral Imaging Routine Bronchiectasis Allergic rhinitis H/O Mycobacterial abcesses pneumonia H/O Aspergillus pneumonia History of Mycobacterium avium intracellulare infection 05/19/2018 9:16 AM EST documented as of this encounter Visit Diagnoses Not on filedocumented in this encounter Additional Health Concerns Infection Onset Date Last Indicated Resolved Time COVID (rule out) 10/27/2020 10/28/2020 11/03/2020 9:08 PM EDT COVID (rule out) 02/06/2024 02/06/2024 02/06/2024 1:05 PM EDT documented as of this encounter Care Teams Senior Branch Manager Relationship Specialty Start Date End Date Brad Valles MD [address] [facility] [address] [place] [address] PCP - General 08/15/15 07/09/23 documented as of this encounter
--- OUTSIDE RECORDS SUMMARY | 2018-07-31 12:09 | XMS_ITS | Encounter Summary ---
[facility] Address [address] [place] [address] Care Team Providers Care Yeast Distiller Name Role Phone Brad Valles MD Primary Care Provider [phone] Encounter Details Date Type Department Care Team (Late st Contact Info) Description 07/31/2018 11:09 AM EST Hospital Encounter [facility] PULMONARY & CRITICAL CARE MEDICINE [address] [place] [phone] Social History Tobacco Use Types Packs/Day Years [...] or training? Not on file Preferred Language Italian 09/05/2023 PHQ-2 Answer Date Recorded Patient Health [...] Info) Description 03/16/2025 10:45 AM EDT Registration [facility] PULMONARY & CRITICAL CARE MEDICINE [address] [facility] [address] [place] [address] 03/16/2025 11:00 AM EDT Office Visit [facility] PULMONARY & CRITICAL CARE MEDICINE [address] [facility] [address] [place] [address] Dana David, DRUPAL ARCHITECT [address] [place] [address] 05/03/2025 11:30 AM EST Office Visit [facility] 1700 [place] [address] Tammi Goins, DRUPAL ARCHITECT [address]00 [place] [address] 07/27/2025 10:30 AM EST Office Visit [facility] GYNECOLOGIC ONCOLOGY [address] [facility] [address] [place] [address] Dara Taylor, DRUPAL ARCHITECT [address] [facility] [address] [place] [address] Pending Results Name Type Priority Associated Diagnoses Date /Time XR Chest PA & Lateral Imaging Routine Bronchiectasis 07/31/2018 11:19 AM EST documented as of this encounter Visit Diagnoses Not on filedocumented in this encounter Additional Health Concerns Infection Onset Date Last Indicated Resolved Time COVID (rule out) 10/27/2020 10/28/2020 11/03/2020 9:08 PM EDT COVID (rule out) 02/06/2024 02/06/2024 02/06/2024 1:05 PM EDT documented as of this encounter Care Teams Yeast Distiller Relationship Specialty Start Date End Date Brad Valles MD [address] [place] [address] [place] [address] PCP - General 08/15/15 07/09/23 documented as of this encounter
--- OUTSIDE RECORDS SUMMARY | 2020-05-04 11:21 | XMS_ITS | Encounter Summary ---
[facility] Address [address] [place] [address] Care Team Providers Care Tattoo Designer Name Role Phone Brad Valles MD Primary Care Provider [phone] Encounter Details Date Type Department Care Team (Late st Contact Info) Description 05/04/2020 10:21 AM EST Hospital Encounter [facility] PULMONARY & CRITICAL CARE MEDICINE [address] [place] [phone] Social History Tobacco Use Types Packs/Day Years [...] or training? Not on file Preferred Language Greek 09/05/2023 PHQ-2 Answer Date Recorded Patient Health [...] Info) Description 03/16/2025 10:45 AM EDT Registration [facility] PULMONARY & CRITICAL CARE MEDICINE [address] [facility] [address] [place] [address] 03/16/2025 11:00 AM EDT Office Visit [facility] PULMONARY & CRITICAL CARE MEDICINE [address] [facility] 240 [place] [address] Dana David, ENVELOPE STAMPING MACHINE OPERATOR [address] [place] [address] 05/03/2025 11:30 AM EST Office Visit [facility] [address] [place] [address] Tammi Goins, ENVELOPE STAMPING MACHINE OPERATOR [address] [place] [address] 07/27/2025 10:30 AM EST Office Visit [facility] GYNECOLOGIC ONCOLOGY [address] [facility] [address] [place] [address] Dara Taylor, ENVELOPE STAMPING MACHINE OPERATOR [address] [facility] [address] [place] [address] documented as of this encounter Procedures Procedure Name Priority Date/Time Associated Diagnosis Comments XR CHEST PA AND LATERAL Routine 05/04/2020 10:31 AM EST Bronchiectasis documented in this encounter Results * XR Chest PA & Lateral (05/04/2020 10:31 AM EST) Anatomical Region Laterality Modality Body, Chest N/A Radiographic Cristal ging 05/04/2020 10:5 6 AM EST Impressions 05/04/2020 10:58 AM EST Stable appearance of the chest as above without evidence of acute disease. This report was finalized on 05/04/2020 10:58 AM by Arnol Gan. Narrative 05/04/2020 10:58 AM EST EXAMINATION: XR CHEST PA AND LATERAL- INDICATION: SEE DIAGNOSIS; J47.9-Bronchiectasis, uncomplicated COMPARISON: 07/31/2018 FINDINGS: Redemonstrated postsurgical appearance of the right thorax, with some pleural thickening and scar, without new focal suspicious opacification. No pleural effusion or pneumothorax. Normal heart and mediastinal contours. Procedure Note Arnol Gan MD - 05/04/2020 EXAMINATION: XR CHEST PA AND LATERAL- INDICATION: SEE DIAGNOSIS; J47.9-Bronchiectasis, uncomplicated COMPARISON: 07/31/2018 FINDINGS: Redemonstrated postsurgical appearance of the right thorax, with some pleural thickening and scar, without new focal suspicious opacification. No pleural effusion or pneumothorax. Normal heart and mediastinal contours. IMPRESSION: Stable appearance of the chest as above without evidence of acute disease. This report was finalized on 05/04/2020 10:58 AM by Arnol Gan. Dana David APRN IMG DIAGNOSTIC IMAGING ORD ERABLES Final Result documented in this encounter Visit Diagnoses Not on filedocumented in this encounter Additional Health Concerns Infection Onset Date Last Indicated Resolved Time COVID (rule out) 10/27/2020 10/28/2020 11/03/2020 9:08 PM EDT COVID (rule out) 02/06/2024 02/06/2024 02/06/2024 1:05 PM EDT documented as of this encounter Care Teams Tattoo Designer Relationship Specialty Start Date End Date Brad Valles MD [address] [facility] [address] [place] [id number] PCP - General 08/15/15 07/09/23 documented as of this encounter
--- OUTSIDE RECORDS SUMMARY | 2022-06-27 11:23 | XMS_ITS | Encounter Summary ---
[facility] [address] [place] [address] Care Team Providers Care Scrub Nurse Name Role Phone Brad Valles MD Primary Care Provider [phone] Encounter Details Date Type Department Care Team (Late st Contact Info) Description 06/27/2022 10:23 AM [facility] Hospital Encounter [facility] PULMONARY & CRITICAL CARE MEDICINE [address] [place] [phone] Social History Tobacco Use Types Packs/Day Years [...] or training? Not on file Preferred Language Spanish 09/05/2023 PHQ-2 Answer Date Recorded Patient Health [...] Info) Description 03/16/2025 10:45 AM EDT Registration [facility] PUL[facility]ICAL [facility]ARE MEDICINE [address] [facility] [address] [place] [address] 03/16/2025 11:00 AM EDT Office Visit [facility] PULMON[facility]ICAL CARE MEDICINE [address] [facility] [address] [place] [address] Dana David, DIAL MOUNTER [address] [place] [address] 05/03/2025 11:30 AM EST Office Visit [facility] [address] [place] [address] Tammi Goins, DIAL MOUNTER [address] [place] [address] 07/27/2025 10:30 AM EST Office Visit [facility] GYNECOLOGIC ONCOLOGY [address] [facility] [address] [place] [address] Dara Taylor, DIAL MOUNTER [address] [facility] [address] [place] [address] documented as of this encounter Procedures Procedure Name Priority Date/Time Associated Diagnosis Comments XR CHEST PA AND LATERAL Routine 06/27/2022 10:30 AM EST Idiopathic bronchiectasis documented in this encounter Results * XR Chest PA & Lateral (06/27/2022 10:30 AM EST) Anatomical Region Laterality Modality Body, Chest N/A Radiographic Cristal ging Narrative 06/27/2022 11:05 AM EST Panel chest x-rays obtained Prominent interstitial pattern noted Surgical clips present in mid right lung zone More nodular changes in the apex right greater than left Chest x-ray appears unchanged comparison to prior film from May 04, 2020 Jigar Roth MD IMG DIAGNOSTIC IMAGING ORDERABLES Final Result documented in this encounter Visit Diagnoses Not on filedocumented in this encounter Additional Health Concerns Infection Onset Date Last Indicated Resolved Time COVID (rule out) 02/06/2024 02/06/2024 02/06/2024 1:05 PM EDT documented as of this encounter Care Teams Scrub Nurse Relationship Specialty Start Date End Date Brad Valles MD [facility] [address] [facility] [address] [facility] [place] [address] PCP - General 08/15/15 07/09/23 documented as of this encounter
--- OUTSIDE RECORDS SUMMARY | 2024-01-07 10:39 | XMS_ITS | Encounter Summary ---
[facility] [address] [place] [address] Care Team Providers Care Detective Captain Name Role Phone Morteza Dixon MD Primary Care Provider [phone] Encounter Details Date Type Department Care Team (Late st Contact Info) Description 01/07/2024 10:39 AM EDT Hospital Encounter [facility] PULMONARY & CRITICAL CARE MEDICINE [address] [place] [phone] Social History Tobacco Use Types Packs/Day Years [...] or training? Not on file Preferred Language Kiswahili 09/05/2023 PHQ-2 Answer Date Recorded Patient Health [...] Info) Description 03/16/2025 10:45 AM EDT Registration [facility] PULMONARY & CRITICAL CARE MEDICINE [address] [facility] [address] [place] [address] 03/16/2025 11:00 AM EDT Office Visit [facility] PULMONARY & CRITICAL CARE MEDICINE [address] [facility] [address] [place] [address] Dana David, CERTIFIED PROFESSIONAL MIDWIFE [address] [place] [address] 05/03/2025 11:30 AM EST Office Visit [facility] [address] [place] [address] Tammi Goins, CERTIFIED PROFESSIONAL MIDWIFE [address] [place] [address] 07/27/2025 10:30 AM EST Office Visit [facility] GYNECOLOGIC ONCOLOGY [address] [facility] [address] [place] [address] Dara Taylor, CERTIFIED PROFESSIONAL MIDWIFE [address] [facility] [address] [place] [address] documented as of this encounter Procedures Procedure Name Priority Date/Time Associated Diagnosis Comments XR CHEST PA AND LATERAL Routine 01/07/2024 10:43 AM EDT Bronchiectasis without complication documented in this encounter Results * XR Chest PA & Lateral (01/07/2024 10:43 AM EDT) Anatomical Region Laterality Modality Body, Chest N/A Radiographic Cristal ging Narrative 01/07/2024 2:01 PM EDT Indication: Bronchiectasis PA and lateral chest x-rays obtained Cardiac silhouette size at the upper limits of normal size CT ratio is 12 x 23 Surgical clips in the mid right lung Chronic appearing interstitial changes Unchanged comparison to prior film from 05/04/2020 Jigar Roth MD IMG DIAGNOSTIC IMAGING ORDERABLES Final Result documented in this encounter Visit Diagnoses Not on filedocumented in this encounter Additional Health Concerns Infection Onset Date Last Indicated Resolved Time COVID (rule out) 02/06/2024 02/06/2024 02/06/2024 1:05 PM EDT documented as of this encounter Care Teams Detective Captain Relationship Specialty Start Date End Date Morteza Dixon MD [address] [place] [address] [place] [address] PCP - General Family Medicine 07/10/23 documented as of this encounter
--- OUTSIDE RECORDS SUMMARY | 2024-09-12 17:30 | XMS_ITS ---
Author Organization [facility] Address [address] [place] [address] [place] [address] Care Team Providers Care Balance Sheet Analyst Name Role Phone Gildardo Velasquez Primary Care Provider CiaraKatie Unavailable [phone] GILDARDO Velasquez APRN Unavailable Unavailable Migration, Provider Unavailable Unavailable Allergies Allergen (clinical drug ingredient) Drug/Non Drug Allergy documented on EMR Reaction Allergy Type Onset Date Status LEVAQUIN (uncoded) Unknown Allergy A ctive linezolid Zyvox Unknown Drug Allergy Active [facility] Conversion Encounter Medications Medication SIG (Take, Route, Frequency, Duration) Notes Start Date End Date Status Montelukast Sodium 10 MG 1 tab(s) orally once a day; Duration: 90 Active busPIRone HCl 10 MG 1 tab(s) orally bid Active Citalopram Hydrobromide 10 MG 1 tab(s) orally once a day; Duration: 90 days 09/22/2021 Active Omeprazole 20 MG 1 cap(s) orally every other day Active Mucinex 600 MG 1 tab(s) orally every 12 hours prn Active Advair Diskus 500 MCG-50 MCG 1 PUFF(S) INHALED 2 TIMES A DAY *Please review and pick correct strength-formulati on from [facility] options. If intended option is not shown, discontinue and re-order from Quick Search* Active Vitamin D3 25 MCG (1000 UT) 1 tab(s) orally once a day Active RHINOCORT ALLERGY 32 MCG/INH 1 SPRAY(S) INTRANASALLY BID *Please review for potential replacement for e-prescription and drug interaction check* Active Xyzal Allergy 24HR 5 MG 1 po qd Active Ventolin HFA 108 (90 Base) MCG/ACT 2 puff(s) inhaled 4 times a day Active Azithromycin 250 MG 1 tab(s) orally 3 times a week Active Aspirin 81 MG 1 tab(s) orally once a week 08/30/2015 Active Encounters Encounter Location Date Provider Diagnosis [facility] [address] [place] [address] 09/12/2024 Provider Migration Anxiety associated with depression F41.8 Assessments Encounter Date Diagnosis (ICD Code) Assessment Notes Treatment Notes Treatment Clinical Notes Section Notes 09/12/2024 Anxiety associated with depression (ICD-10 - F41.8) Plan Of Treatment Medication Medication Name Sig Start Date Stop Date Notes Citalopram Hydrobromide 10 MG 1 tab(s) o rally once a day; Duration: 90 days 09/22/2021 Progress Notes * Joseph TAVERASOB:1950 ( 74 yo F)Acc No.[id number]:09/12/2024 Patient: Perla MORRIS Provider: Araseli Taylor :1950 A ge:73 Y S ex:Female Date:09/12/2024 Address:[facility] [address], [place], [id number] Pcp:Gildardo Velasquez Subjective: * Chief Complaints: * [facility] . [facility] En[facility]. * Medical History: * Medications: T aking Azithromycin 250 MG Tablet 1 tab(s) orally 3 times a week , Taking Aspirin 81 MG Tablet Delayed Release 1 tab(s) orally once a week , Taking RHINOCORT ALLERGY 32 MCG/INH SPRAY 1 SPRAY(S) INTRANASALLY BID , Notes to Pharmacist: *Please review for potential replacement for e-prescription and drug interaction check*, Taking Xyzal Allergy 24HR 5 MG Tablet 1 po qd , Taking Ventolin HFA 108 (90 Base) MCG/ACT Aerosol Solution 2 puff(s) inhaled 4 times a day , Taking Advair Diskus 500 MCG-50 MCG POWDER 1 PUFF(S) INHALED 2 TIMES A DAY , Notes to Pharmacist: *Please review and pick correct [facility]. If intended option is not shown, discontinue and re-order from Quick Search*, Taking Vitamin D3 25 MCG (1000 UT) Tablet 1 tab(s) orally once a day , Taking Montelukast Sodium 10 MG Tablet 1 tab(s) orally once a day , Taking busPIRone HCl 10 MG Tablet 1 tab(s) orally bid , Taking Omeprazole 20 MG Capsule Delayed Release 1 cap(s) orally every other day , Taking Mucinex 600 MG Tablet Extended Release 12 Hour 1 tab(s) orally every 12 hours prn * Allergies: Z yvox, LEVAQUIN. Objective: * Vitals: Assessment: * Assessment: 1. A nxiety associated with depression - F41.8 Plan: * Treatment: * * Electronic signature of Prov ider Migration on 02/16/2025 at 12:24 PM EDT Sign off status: Pending * Provider: Araseli kumar Migration Date: 0 09/12/2024 Generated for Dayanara hannon/Lisa/Becki on: 0 02/16/2025 12:24 PM EDT
--- OUTSIDE RECORDS SUMMARY | 2025-02-01 10:30 | XMS_ITS | Encounter Summary ---
Author Organization [facility] Address [address] [place] [address] Care Team Providers Care Technical Coordinator Name Role Phone Morteza Dixon MD Primary Care Provider [phone]- [phone] Encounter Details Date Type Department Care Team (Late st Contact Info) Description 02/01/2025 10:30 AM EDT Office Visit [facility]COL[facility]Y [address] [place] [id number] Dara Taylor, STEEL PLATE PRINTER [address] [facility] [address] [place] [phone] Genitourinary syndrome of menopause (Primary Dx); History of endometrial cancer Social History Tobacco Use Types Packs/Day Years Used Date Smoking Tobacco: Former Cigarettes Q uit: 1971 Passive Smoke Exposure: Past Tobacco Cessation:Counseling Given: Not Answered Alcohol Use Standard Drinks/Week Comments No 0 [...] or training? Not on file Preferred Language Yoruba 09/05/2023 PHQ-2 Answer Date Recorded Patient Health Questionnaire-9 Score 0 08/04/2024 Comments No Sex and Gender Information Value Date Recorded Sex Assigned at Female 10/28/2024 11:34 AM EDT Legal Sex Female 1:14 PM EDT Gender Identity Not on file Sexual Orientation Not on file documented as of this encounter Last Filed Vital Signs Vital Sign Reading Time Taken Comments Blood Pressure 118/75 02/01/2025 10:13 AM EDT Pulse 76 02/01/2025 10:13 AM EDT Temperature 36.3 C (97.3 F) 02/01/2025 10:13 AM EDT Respiratory Rate 17 02/01/2025 10:13 AM EDT Oxygen Saturation 93% 02/01/2025 10:13 AM EDT Inhaled Oxygen Concentration - - Weight 60.1 kg (132 lb 8 oz) 02/01/2025 10:13 AM EDT Height 168.9 cm (5' 6.5 ) 02/01/2025 10:13 AM ED T Body Mass Index 21.07 02/01/2025 10:13 AM EDT documented in this encounter Progress Notes * Dara Taylor, STEEL PLATE PRINTER - 02/01/2025 10:30 AM EDT METAL BONDING HELPER ONCOLOGY CANCER SURVEILLANCE FOLLOW-UP Perla Taveras [id number] 1950 Subjective Chief Complaint: 6m follow up, history of endometrial cancer History of present illness: Perla Taveras is a 74 y.o. year old female who is here today for ongoing surveillance of Endometrial Cancer, see Cancer History. As of November, she is now over 1 year out since completion of treatment and doing well. She has no acute complaints or concerns at this time. Denies any major changes in health since last visit. She denies vaginal bleeding and discharge. She does not have abdominal or pelvic pain. She is tolerating a regular diet and endorses a normal appetite. She denies nausea and vomiting. She denies early satiety and bloating. Denies any CP, SOB, lightheadedness or dizziness. She denies changes in her bowel/bladder. No dysuria, frequency, urgency, hematuria or flank pain. Reports normal energy levels. -Last saw a rad onc 10/2024 - Previously referred to pelvic floor PT for urinary incontinence. Reports significant improvement in symptoms, although still has to renner to the bathroom in the morning. She continues exercises learned during therapy. - Reports compliance with vaginal dilator 2 times/weekly. Vaginal burning resolved after switching from K-Y jelly to Replens. Cancer History: Oncology/Hematology History Endometrial cancer 08/21/2023 Initial Diagnosis Endometrial cancer 08/23/2023 Cancer Staged Staging form: Corpus Uteri - Carcinoma And Carcinosarcoma, AJCC 8th Edition - Clinical stage from 08/23/2023: FIGO Stage I (cT1, cN0, cM0) - Signed by Vanita Pérez MD on 10/05/2023 Staging comments: Jazz sharma 09/12/2023 Cancer Staged Staging form: Corpus Uteri - Carcinoma And Carcinosarcoma, AJCC 8th Edition - Pathologic stage from 09/12/2023: FIGO Stage IB (pT1b, pN0(sn), cM0) - Signed by Vanita Pérez MD on 10/05/2023 11/11/2023 - 11/25/2023 Radiation Radiation OncologyTreatment Course: Perla Taveras received 3000 cGy in 5 fractions to upper vagina via High Dose Radiation - HDR. 02/03/2024 Survivorship Survivorship Care Plan completed and discussed with patient. Copy of Survivorship Care Plan provided to patient and primary care provider. Uterine cancer (Resolved) 08/23/2023 Initial Diagnosis Uterine cancer 02/03/2024 Survivorship Survivorship Care Plan completed and discussed with patient. Copy of Survivorship Care Plan provided to patient and primary care provider. The current medication list and allergy list were reviewed and reconciled. Past Medical History, Past Surgical History, Social History, Family History have been reviewed and are without significant changes except as mentioned. Review of Systems See HPI Objective Physical Exam Vital Signs: BP 118/75 Pulse 76 Temp 97.3 ??F (36.3 ??C) (Temporal) Resp 17 Ht 168.9 cm (66.5 ) Wt 60.1 kg (132 lb 8 oz) LMP (LMP Unknown) SpO2 93% BMI 21.07 kg/m?? Vitals: 02/01/25 1013 PainSc: 0-No pain Comment: Pt states no pain General Appearance: alert, cooperative, no apparent distress and appears stated age Neurologic/Psych: A&O x 3, gait steady, appropriate affect HEENT: Normocephalic, without obvious abnormality, mucous membranes moist Abdomen: Soft, non-tender, non-distended, and no organomegaly Lymph nodes: No cervical, supraclavicular, inguinal adenopathy noted Pelvic: External Genitalia atrophic, without lesions Vagina is pale, atrophic. , shortened vaginal vault., and changes consistent with previous radiation. Vaginal Cuff Female Vaginal Cuff: smooth, intact, and without visible lesions Uterus surgically absent and no palpable masses Ovaries surgically absent bilaterally and without palpable masses or fullness Rectovaginal Female rectovaginal: deferred ECOG score: 0 Result Review : Tumor marker: CA 125 Date Value Ref Range Status 08/23/2023 67.6 (H) 0.0 - 38.1 U/mL Final Assessment and Plan: Perla Taveras is a 74 y.o. with a history of a stage IB g1 EAC endometrial cancer s/p TLH/BSO by [place]. She then underwent adjuvant vaginal brachytherapy alone to a dose of 30 Driver in 5 fractionsdelivered to the vaginal surface, which she completed 11/25/2023. She is currently without clinical e vidence of disease. Signs of recurrent disease, such as vaginal bleeding, persistent abdominopelvicpain, urinary or bowel changes, and shortness of breath were reviewed. She was advised to follow upimmediately if she develops any of the above symptoms. She is understanding to call with any changes in pelvic symptoms or general METAL BONDING HELPER concerns at any time between regularly scheduled visits. Continue alternating surveillance visits between ruby on rails developer and radiation oncology. Next apt with STEEL PLATE PRINTER is 05-03-25. Continue use of vaginal dilator as previously instructed. -She will follow-up in 6m. Health maintenance: She was reminded to maintain a healthy lifestyle with a well balanced diet, calcium and vitamin D for osteoporosis prevention, and exercise as well as continue with recommended health and cancer screening guidelines. -Continue use of vaginal conditioner as previously discussed. - Continue pelvic floor exercises -CA-125 elevated at dx, can follow. Will check today. Diagnoses and all orders for this visit: 1. Genitourinary syndrome of menopause (Primary) 2. History of endometrial cancer - CA 125; Future Pain assessment was performed today as a part of patient???s care. For patients with pain related to surgery, gynecologic malignancy or cancer treatment, the plan is as noted in the assessment/plan. For patients with pain not related to these issues, they are to seek any further needed care from a more appropriate provider, such as PCP. Follow-up: Return to clinic in 6 months for ongoing cancer surveillance (bottom only, no pap). documented in this encounter Miscellaneous Notes * ACP (Advance Care Planning) - Snehal Garcia MA - 02/01/2025 10:30 AM EDT Advance Care Planning ACP discussion was held with the patient during this visit. Patient does not have an advance directive, declines further assistance. documented in this encounter Plan of Treatment Upcoming Encounters Date Type Department Care Team (Late st Contact Info) Description 03/16/2025 10:45 AM EDT Registration [facility] PUL[facility] & CRITICAL CARE MEDICINE [address] [place] [address] [address] [place] [address] 03/16/2025 11:00 AM EDT Office Visit [facility]ARE MEDICINE [address] [facility] [address] [place] [address] Dana David APRN [address] [place] [address] 05/03/2025 11:30 AM EST Office Visit [facility] [address] [place] [address] Tammi Goins APRN [address] [place] [address] 07/27/2025 10:30 AM EST Office Visit [facility] GYNECOLOGIC ONCOLOGY [address] [place] [address] Dara Taylor STEEL PLATE PRINTER [address] [place] [address] documented as of this encounter Results * (ABNORMAL) CA 125 (02/01/2025 11:01 AM EDT) CA 125 80.2(H) 0.0 - 38.1 U/mL 02/01/2025 3:24 PM EDT [facility] Blood Venipuncture / Unknown 02/01/2025 11:01 AM EDT 02/01/2025 11:01 AM EDT Narrative [facility] - 02/01/2025 3:24 PM EDT Results may be falsely decreased if patient taking Biotin. Testing Method: [employer] Electrochemiluminescence Immunoassay(ECLIA) Values obtained with different assay methods or kits cannot be used interchangeably. Dara Taylor APRN LAB BLOOD ORDERABLES F inal Result [facility]
[address] [place] [address], documented in this encounter Visit Diagnoses Diagnosis Genitourinary syndrome of menopause- Primary History of endometrial cancer documented in this encounter Additional Health Concerns Assessment Noted Time PHQ-2 Depression Total Score: 4 02/03/20 24 11:18 AM EDT documented as of this encounter Care Teams Technical Coordinator Relationship Specialty Start Date End Date Morteza Dixon MD [address] [place] [address] [place] [address] PCP - General Family Medicine 07/10/23 documented as of this encounter
--- OUTSIDE RECORDS SUMMARY | 2025-02-01 11:00 | XMS_ITS | Encounter Summary ---
Author Organization [facility] Address [address] [place] [address] Care Team Providers Care Special Education Paraprofessional Name Role Phone Morteza Dixon MD Primary Care Provider +1- [phone] Encounter Details Date Type Department Care Team (Late st Contact Info) Description 02/01/2025 11:00 AM EDT Lab [facility] [address] [place] [phone] History of endometrial cancer Social History Tobacco [...] or training? Not on file Preferred Language Maltese 09/05/2023 PHQ-2 Answer Date Recorded Patient Health Questionnaire-9 Score 0 08/04/2024 Comments No Sex and Gender Information Value Date Recorded Sex Assigned at Female 10/28/2024 11:34 AM EDT Legal Sex Female 1:14 PM EDT Gender Identity Not on file Sexual Orientation Not on file documented as of this encounter Plan of Treatment Upcoming Encounters Date Type Department Care Team (Late st Contact Info) Description 03/16/2025 10:45 AM EDT Registration [facility] PULMON[facility] & CRITICAL CARE MEDICINE [address] [facility] [address] [place] [address] 03/16/2025 11:00 AM EDT Office Visit [facility]ULMON[facility]ITICAL [facility]ARE MEDICINE [address] [facility] [address] [place] [address] Dana David, LICENSED PESTICIDE APPLICATOR [address] [place] [address] 05/03/2025 11:30 AM EST Office Visit [facility] [address] [place] [address] Tammi Goins, LICENSED PESTICIDE APPLICATOR [address] [place] [address] 07/27/2025 10:30 AM EST Office Visit [facility] GYNECOLOGIC ONCOLOGY [address] [facility] [address] [place] [address] Dara Taylor, LICENSED PESTICIDE APPLICATOR [address] [facility] [address] [place] [address] documented as of this encounter Procedures Procedure Name Priority Date/Time Associated Diagnosis Comments CA 125 Routine 02/01/2025 11:01 AM EDT History of endometrial cancer documented in this encounter Results * (ABNORMAL) CA 125 (02/01/2025 11:01 AM EDT) CA 125 80.2(H) 0.0 - 38.1 U/mL 02/01/2025 3:24 PM EDT [facility] Blood Venipuncture / Unknown 02/01/2025 11:01 AM EDT 02/01/2025 11:01 AM EDT Narrative [facility] - 02/01/2025 3:24 PM EDT Results may be falsely decreased if patient taking Biotin. Testing Method: [employer] Electrochemiluminescence Immunoassay(ECLIA) Values obtained with different assay methods or kits cannot be used interchangeably. Dara Taylor LICENSED PESTICIDE APPLICATOR LAB BLOOD ORDERABLES F inal Result [facility]
[address] [place] [address], documented in this encounter Visit Diagnoses Diagnosis History of endometrial cancer documented in this encounter Additional Health Concerns Assessment Noted Time PHQ-2 Depression Total Score: 4 02/03/20 11:18 AM EDT documented as of this encounter Care Teams Special Education Paraprofessional Relationship Specialty Start Date End Date Morteza Dixon MD [address] [place] [address] [facility] [place] [address] PCP - General Family Medicine 07/10/23 documented as of this encounter
[2025-02-15 19:51] LABS: Hematocrit 41.4 % (37.0-47.0); Hemoglobin 13.0 g/dL (12.2-16.2); Immature Granulocytes % 0.1 %; Mean Corpuscular HGB Conc 31.4 g/dL (31.8-35.4); Mean Corpuscular Hemoglobin 28.2 pg (27.0-31.2); Mean Corpuscular Volume 89.8 fl (81-99); Nucleated Red Blood Cells % 0 %; Platelet Count 331 K/mm3 (142-424); Red Blood Count 4.61 M/mm3 (4.20-5.40); Red Cell Distribution Width-SD 46.1 fL; White Blood Count 8.0 K/mm3 (4.8-10.8)
[2025-02-15 20:30] LABS: Albumin Level 4.1 g/dl (3.5-5.0); Chloride 104 mmol/L (98-107); Potassium 4.9 mmoL/L (3.5-5.1); Sodium 137 mmol/L (136-145)
[2025-02-15 20:33] LABS: Alanine Aminotransferase 17 U/L (12-78); Albumin/Globulin Ratio 1.5 (1.1-1.8); Alkaline Phosphatase 106 U/L (38-126); Anion Gap 9.9 mEq/L (5-15); Aspartate Amino Transferase 33 U/L (14-36); Bilirubin,Total 0.4 mg/dl (0.2-1.3); Blood Urea Nitrogen 13 mg/dl (7-17); Calcium 9.6 mg/dl (8.4-10.2); Carbon Dioxide 28 mmol/L (22.0-30.0); Cholesterol 184 mg/dl (140-200); Creatinine,Serum 0.70 mg/dl (0.52-1.04); Estimated Glomerular Filt Rate 82 ml/min (>60); GFR (African American) 99 ML/MIN (>60); Globulin 2.7 g/dL (1.3-3.2); Glucose 82 mg/dl (74-100); Total Protein,Serum 6.8 g/dl (6.3-8.2); Triglycerides 62 mg/dl (30-150)
[2025-02-15 20:34] LABS: HDL Cholesterol 66 mg/dl (40-60)
[2025-02-15 21:11] LABS: Thyroid Stimulating Hormone 1.85 uIU/mL (0.465-4.68)
[2025-02-15 21:28] LABS: Hepatitis C Ab Qual. W/ RFX NEGATIVE (Negative)
--- OUTSIDE RECORDS SUMMARY | 2025-02-16 12:24 | XMS_ITS ---
Author Organization [facility] Address [address] [place] [address] Care Team Providers Care Quantitative Developer Name Role Phone Morteza Dixon MD Primary Care Provider [phone]- [phone] Active Problems Problem Noted Date Diagnosed Date Endometrial cancer 08/21/2023 Cancer Staging:Clinical stage from 08/23/2023:FIGO Stage I(cT1, cN0, cM0) - Signed by Vanita Pérez MD on 10/05/2023 Pathologic stage from 09/12/2023:FIGO Stage IB(pT1b, pN0(sn), cM0) - Signed by Vanita Pérez MD on 10/05/2023 Bronchiectasis 01/23/2017 Allergic rhinitis 01/23/2017 GERD 01/23/2017 History of thoracotomy 06/18/2016 Overview (06/18/2016): 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 Anxiety 02/03/2016 H/O: pneumonia 02/03/2016 Overview (02/03/2016): History of influenza pneumonia in 2008. 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 Diagnosed with aspergillus growth on bronchoscopy BAL combined with positive Aspergillus precipitansCompleted therapy in February of 2011 H/O Mycobacterial abcesses pneumonia 02/03/2016 Overview (02/03/2016): A. Past Mycobacterium abscesses infection in 2006.B. Status post antimicrobial therapy and surgery at that time. Current Treatment and Therapy Plans No current plan information found. Past Treatment and Therapy Plans No past plan information found. Treatment Summaries Endometrial cancer* Images from the original note were not included. Endometrial Cancer Survivorship Plan General Information Patient name Perla Taveras Date of 1950 Phone Email [email or web address] Cancer Treatment Team Patient Care Team: Mateusz Downs MD as Consulting Physician (Radiation Oncology) Provider Phone numbers Care Team Provider: Jigar Roth MD, ([phone]) Care Team Provider: Vanita Pérez MD, ([phone]) Care Team Provider: Mateusz Downs MD, ([phone]) Post Treatment Care Team Primary Care Physician Morteza Dixon MD [address] [place] [address] [address] Background Information Medical history Past Medical History: Abdominal pain Anxiety Bronchiolectasis Cancer ENDOMETRIAL CA Cataract NOT HAD SURGERY COPD (chronic obstructive pulmonary disease) Endometrial cancer GERD (gastroesophageal reflux disease) H/O chest x-ray Lungs hyperexpanced w/ flattened, increased anterior clear space. there are surgical clips on rightside. There are prominent right greater than left pulmonary artery, which is probalbe unchanges as well as some peripheral nodula density in the lateral right lung jackson as well. All of there findings are unchanged in comparison to prior films from 08/17/13 H/O chest x-ray CT ratio 06/03. Cardiac silhoutte normal size. There are surgical clips in the right mid and upper lung zone. There is no consolidation. There is some mild prominence of interstitial markings in the right middle lobe distributaion but no consolidation of air bronchograms & no effusions. There are flattened diaphragms, increased anterior clear space, suggestive of underlying OAD H/O chest x-ray The lungs are clear. Previously noted surgical clips in the right lung are present and unchanged. No masses, effusions, infiltrates or consolidation. Flattened diaphragms are suggestive of underlyingOAD High blood pressure History of brachytherapy vaginal cuff History of bronchoscopy No endobronchial lesions,mildbronchitic changes. She had some thick white tenacious secretions emanating from lingula and to lesser degree left left lower lobe. Bronchalveolar lavage specimen was obtained. [place] and multiple transbronchial biopsies were obtained utilzing fluoroscopy without radiologist present. Minimal bleeding and no evidence of active bleeding at end of proceudre History of PFTs No obstruction, restriction cannot be excluded History of PFTs PFT acceptable and reproducible. Pt gave good effort. Pt ised bronchodilotor less than 2 hours prior to testing. DLCO best attempt Lung nodule Right lung due to bacterial infection from some sort of inhalation. Benign. Sinus drainage Surgical history Past Surgical History: BRONCHOSCOPY Procedure: BRONCHOSCOPY WITH FLUORO; Surgeon: Jigar Roth MD; Location: [facility] END[facility]COPY; Service: COLONOSCOPY LAPAROSCOPIC TUBAL LIGATION MINI-LAPAROTOMY POLYP TOO BIG TO REMOVE DURING COLONOSCOPY RECTOCELE REPAIR THORACOTOMY MYCOBACTERIAL ABSCESS, WEDGE RESECTION TOTAL LAPAROSCOPIC HYSTERECTOMY SALPINGO OOPHORECTOMY Procedure: TOTAL LAPAROSCOPIC HYSTERECTOMY BILATERAL SALPINGOOPHORECTOMY WITH DAVINCI ROBOT, INJECTION OF ICG DYE WITH SENTINEL LYMPH NODE BIOPSY; Surgeon: Echo Schulz MD; Location: [facility] OR; Service: Robotics - DaVinci; Laterality: N/A; Family oncology history Cancer-related family history includes Breast cancer (age of onset: 65) in her mother; Cancer (age of onset: 75) in her brother; Colon cancer (age of onset: 68) in her sister. Genetic Referral Referral: No Genetic testing: No Testing results: n/a . Cancer Diagnosis Information Diagnosis Endometrial cancer Diagnosis date 08/21/2023 Staging information Cancer Staging Endometrial cancer Staging form: Corpus Uteri - Carcinoma And Carcinosarcoma, AJCC 8th Edition - Clinical stage from 08/23/2023: FIGO Stage I (cT1, cN0, cM0) - Signed by Vanita Pérez MD on 10/05/2023 Staging comments: Jazz sharma - Pathologic stage from 09/12/2023: FIGO Stage IB (pT1b, pN0(sn), cM0) - Signed by Vanita Pérez MD on 10/05/2023 Grade Grade I Histology Endometrioid Adenocarcinoma Tumor marker at [facility] Initial Surgery Procedure Total Laparoscopic Hysterectomy Bilateral Salpingoophorectomy With Davinci Robot, Injection Of Icg Dye With [place] Lymph Node Biopsy Significant Pathology Debulking Residual disease Neoadjuvant Chemotherapy No Regimen Adjuvant Chemotherapy No Regimen Radiation Therapy Yes Regimen dose of 30 Driver over 5 insertions using a 2.5 cm cylinder Treatment on Clinical Trial No Toxicity of Treatment none Complications / Modifications none Completion of Primary Therapy Date: 11/2023 Disease Status Risk of recurrence Oncology Information Oncology/Hematology History Endometrial cancer 08/21/2023 Initial Diagnosis [...] provided to patient and primary care provider. [No matching plan found] Persistent Treatment-Associated Adverse Effects at Completion of Therapy It is important to recognize that not every woman experiences the following adverse events after treatment. You may not have any of these issues, a few, or many adverse effects. Experiences are highly variable. Please discuss any adverse effects of cancer treatment with your cancer care team. After Surgical Therapy Menopausal symptoms: hot flashes, night sweats, irritability, insomnia, and vaginal dryness may occur. See your health care provider about non-medication recommendations and medication-based treatments. Leg swelling: Minimal to pronounced lower leg swelling can occur. Symptom control with compression hose, lymphedema massage, or specialized physical therapy can be ordered. Leg swelling can also be an indication of post-operative complications and should be evaluated by your provider. Sexual intimacy issues: Vaginal dryness and scarring at the top of the vagina causing discomfort can occur. Decreased sexual desire can also occur. Use of a lubricant can help prevent or improve vaginal symptoms. If symptoms persist, talk to your provider about alternate treatments. After Hormonal Therapy Increased appetite, resulting in weight gain: Close monitoring of diet and exercise is encouraged Fluid retention: Compression hose or medication can be used to decrease swelling Fatigue and psychological effects: Some patients may see changes in their energy level or moods during or after hormonal therapy. Notify your doctor of any severe changes. After Radiation Therapy Vaginal dryness and vaginal tightening; Returning to normal sexual activity or use of a lubricant and dilator can help prevent or improve vaginal symptoms. Bowel irritation: Constipation, diarrhea, bleeding, or mucus from the rectum can occur shortly after or long after radiation treatment. Talk with your health care provider about diet and medication-based treatments. Bladder changes: Problems such as bladder irritation, delayed emptying, urinary leaking, or bladderinfections may occur. Your health care provider can help with bladder retraining techniques or testing and treatment of infections. After Chemotherapy Numbness and tingling of extremities: Medications and acupuncture are treatment options. This generally improves over time, but can persist in some patients. Memory changes and fatigue: These are common effects after chemotherapy, that can last long after treatment is complete in some patients. Returning to a normal diet, activities, and exercise can be helpful. Care of your venous access device (port) Your port will need to be flushed every 4 weeks (or as instructed by your doctor) when not being used. Flushing your port needs to be done by a specially trained nurse. Blood work may be drawn at thetime your port is flushed. If your port is properly maintained, it can stay in place as long as your doctor feels you need it. It is not uncommon for cancer to impact other areas of your life such as relationships, work, spirituality, and mental health. If you develop financial concerns, resources are sometimes available to assist in these areas. Depression and anxiety can present either during or after cancer diagnosis and treatment. It is important to discuss with you physician any of these concerns so these resources can be made available to you. Ovarian Cancer Support & Resources [facility] Overhead Door Technician: [facility] Mariluz Huang [phone] Financial Counselor and Contact Information: [facility] Financial Counseling [phone] Dentist Private Practice Contact Information: Karen Tapia - [phone] Local Cancer Support Group and Contact Information: [facility] [address], [place] [address] [email or web address] Look Good Feel Better is a non-medical, brand-neutral public service program that teaches beauty techniques to people with cancer to help them manage the appearance-related side effects of cancer treatment. The program includes lessons on skin and nail care, cosmetics, wigs and turbans, accessoriesand styling, helping people with cancer to find some normalcy in a life. - See more at: http://lookgoodfeelbetter.org Journey Toward Empowerment - for Women with Cancer ([facility]) The Tools and encouragement you need to live your life to the fullest. Free Dinner served @ 6:00pm followed by speaker from 6:30 - 7:30pm. The series runs from March, and meets monthly. Call Marion Schultz RN, OCN @ [phone] to receive information and upcoming schedule. [facility]: This support group is open to anyone that has been diagnosed with cancer of any type cancer. Meets at 6:30pm on the last Saturday of each month. Location: [facility]; [address] [place] [address]. For more information call Katie Farfan @ [phone]. Society of Gynecologic Oncology Recommendations What You Can Do to Stay Healthy after Treatment: Cancer treatments may increase your chance of developing other health problems years after you havecompleted treatment. You can take steps to maintain good health after cancer treatment, including coping with side effects of treatment, reducing the risk of cancer returning, and watching for signs of cancer returning or of a new cancer. Keep in mind that every person treated for cancer is different and that these recommendations are not intended to be a substitute for the advice of a doctor or other health home care and home health aides teacher. Please use these recommendations to talk with your doctor and healthcare team about and appropriate follow-up care plan for you. Recommendation for Follow-Up for Endometrial Cancer: Have a medical history and physical exam that is focused on detecting signs of cancer recurrence orof new cancers, including a detailed pelvic exam (speculum, pelvic and rectovaginal; however, a routine Pap smear is not recommended for routine cancer follow up). Frequency depends on stage of cancer and other risk factors. For instance, if you had a higher stage of cancer, you may be seen more often. See the table below for general guidelines If you had endometrial cancer once, there is a chance that it may come back or spread to other parts of your body. The risk is highest in the first two to three years after treatment, but continues for at least five years. After five years, it is recommended that you have a careful history and physical including pelvic exam (check-up) every 12 months for the rest of your life. After cancer treatment, if you feel that something is not right with your body, see your regular doctor, physician contract administrative assistant or nurse practitioner. Symptoms to report to your health care team includeabdominal distension, feeling full easily, new and persistent nausea and vomiting, bloating, vaginal bleeding, rectal bleeding, weight loss without effort, new and persistent pain, new and persistentfatigue, new masses (i.e., bumps in your neck or groin), new and persistent cough and any other concerns. If what you are feeling is urgent, and you cannot get an appointment with your regular healthcare team, go to an Urgent Care or Medical Walk-In Clinic. Tell the medical provider you had cancer. Show them a copy of your endometrial cancer treatment summary. Endometrial Cancer Follow-up and Survivorship Care How Frequent? Coordinating Provider Medical Oncology visits Every 3 months Reverberatory Furnace Operator onc Rad onc Lab tests No routine labs Imaging exams CT scan for elevating tumor marker, new concerning symptoms, or abnormal findings on physical exam Monitor for ongoing toxicities: Call your doctor if you have any of these signs or symptoms: Vaginal bleeding, pelvic pain, concerning lesions or changes in bowel or bladder function Referrals provided There are no referral needs at this time. General Cancer Screening for Women Cancer screening tests are designed to find cancer or pre-cancerous areas before there are any symptoms and, generally, when treatments are most successful. Various organizations have developed guidelines for cancer screening for women. While these guidelines vary slightly between different organizations, they cover the same basic screening tests for breast, cervical and colorectal cancers. Your health care provider may also evaluate for cancers of the skin, mouth, and thyroid. You should discuss which recommendations and screening tests are right for you. Not all tests are right for every patient. Your personal cancer history may direct your provider to override the general recommendations. The Stateless Cancer Society (ACS) cancer screening guidelines for women: Breast Cancer: Yearly mammograms for women over 40. Women 55 and older should switch to mammograms every 2 years, or may continue yearly screenings. This should continue as long as the woman is in good health. Some women - because of family history, a genetic tendency, or certain other factors - should be screened with MRIs along with mammograms. The number of women who fall into this category is very small. Talk with a health care provider about your personal history and whether you qualify for early or more advanced screening. Know how your breasts normally feel and report any breast changes to your doctor right away. Colon and Rectal Cancer: Starting at age 45, women should follow one of these testing plans. If you are at high risk, based upon personal or family history, you may need to begin screenings early or have them done more often. Talk with a health care provider about the testing plan that is best for you. Tests that find polyps and cancer: Colonoscopy every 10 years (This is the ???gold standard?? ) Flexible sigmoidoscopy every 5 years Double-contrast barium enema every [address] colonography (virtual colonoscopy) every 5 years Tests that mostly find cancer: Yearly guaiac-based fecal occult blood test (gFOBT) Yearly fecal immunochemical test (FIT) Stool DNA test (sDNA) every 3 years Tests that can find both early cancer and polyps should be your first choice if available and you are willing to have one of them. If any of the alternative tests are chosen and there are positive findings, a colonoscopy should be done Multiple stool take home tests should be used for the gFOBT or FIT tests. One test in the office isnot enough. If these are positive, a colonoscopy should be done. Cervical Cancer: Screening should begin at age 21 with a Pap test every 3 years. HPV testing should be only used in women 21-29 if needed after an abnormal result. Women 30-65 may have a Pap test plus and HPV test (???co-testing?? ) every 5 years Women over 65 with a negative history or who have had regular cervical cancer testing within the past 10 years may discontinue screenings. If there is a history of serious cervical pre-cancer, testing should continue for at least 20 years even if it goes past age 65. All women who have been vaccinated against HPV should still follow the screening recommendations for their age group. Some women - because of their health history - may need a different screening schedule or continuedscreenings after a total hysterectomy. Your health care provider will help to determine the best screening schedule for you. Healthy Lifestyle For some cancer survivors, the experience is the impetus to making healthy lifestyle changes. It may seem insignificant, but these changes have been shown to reduce the risk of the cancer coming backor a new cancer developing. Below are some tips on adopting a healthier lifestyle. Practice sun safety: Skin cancer is the most commonly diagnosed type of cancer, and rates are on the rise. It affects both light and dark-skinned people. In most cases, however, it can be prevented or detected early. Exposure to ultraviolet (UV) rays, either by natural sunlight or tanning beds, can lead to skin cancer. In addition, UV rays lead to other forms of skin damage, including wrinkles, loss of skin elasticity, dark patches (sometimes called age spots or liver spots), and pre-cancerous skin changes (such as dry, scaly, rough patches). Sun safety is primary form of prevention: use a broad spectrum sunscreen, avoid peak sun times whenrays are strongest (10 am to 4 pm), wear protective clothing, and avoid tanning beds Examine your skin regularly and have a health care provider examine any concerning areas of moles that have changed. Many dermatologists recommend a yearly head-to-toe skin check. Maintain a healthy weight: Being overweight can increase your chance of your cancer coming back. It can also increase your chance of developing heart disease, diabetes, and stroke. Weight management is different for each woman. You should talk to your health care provider about what a healthy weight is for you, and take steps to reach and maintain that weight. Reaching ideal weight can be challenging for many people. However, losing even 5 to 10 pounds can lower blood pressure, blood sugar, and cholesterol levels. Eat a healthy diet: A healthy diet includes plenty of fruits and vegetables daily. Strive to have two-thirds of your plate be vegetables, fruits, whole-grains or beans. Limit red meats and processed foods. Fish, chicken, and turkey are healthier choices. One-third or less of your plate should be animal products. Drink more water. Limit sodas, juices, and alcohol. Exercise regularly: Experts recommend at least 30 minutes of kmxciutg-rl-ymmxtrnq activity 5 days per week. This can help control weight, improve energy level, and improve sleep. Exercise routines should be tailored to individual patients. They nguyen is to find an activity that you enjoy (dancing, walking, gardening, etc.) and do it regularly. If you have been inactive for a while, start out slow. Talk to your health care provider about and exercise program that will be beneficial and safe for you. Keep your bones healthy: Screening for osteoporosis typically begins at age 65 or younger if your fracture risk is increased. Women can lose up to 20 percent of their bone density after menopause. Certain cancer treatments, such as chemotherapy or hormonal therapy, can cause bone loss. Eating healthy, regular weight bearing exercise, and getting enough calcium and vitamin D can all help to maximize bone density, preventing fracture and osteoporosis. Avoid tobacco in any form: If you use tobacco of any kind, quit as soon as possible. Continued smoking can lead to recurrence of some cancers and is related to many devastating health conditions Smoking is the most preventable cause of in the [place]. Ask your doctor about smoking cessation or call the national hotline at 1-439-LPOO-NOW Have regular check-ups: Keep up-to-date on recommended health screening tests, regular blood work, and vaccinations. Get a flu shot annually. Get the pneumococcal vaccine as recommended by your health care team. Don???t forget dental and eye health. The [employer] Association recommends adults see their dentist at least once per year. The [employer] Opt[employer] Association recommends adults have their eyesexamined every two years until age 60, then annually. If you wear corrective lenses, have diabetes,or have a family history of eye disease it may be recommended that you be seen more frequently. [address] [facility] [address] [facility] [address] [facility] [address] Resolved Problems Problem Noted Date Diagnosed Date Resolved Date Uterine cancer 08/23/2023 02/03/2024
--- OUTSIDE RECORDS SUMMARY | 2025-02-16 12:24 | XMS_ITS | Encounter Summary ---
[facility] Organization [facility] Address [address] [place] [address] Care Team Providers Care Tinner Automatic Name Role Phone Morteza Dixon MD Primary Care Provider +1- [phone] Reason for Visit * Reason Comments Med Refill Encounter Details Date Type Department Care Team (Late st Contact Info) Description 01/05/[address] [facility] PULMONARY & CRITICAL CARE MEDICINE [address] [place] [address] Jigar Roth MD [address] [place] [id number] Allergic rhinitis Social History Tobacco Use Types Packs/Day Years [...] or training? Not on file Preferred Language Tristanian 09/05/2023 PHQ-2 Answer Date Recorded Patient Health [...] Info) Description 03/16/2025 10:[address] [facility] PULMONARY & CRITICAL CARE MEDICINE [address] [facility] [address] [place] [address] 03/16/2025 11:00 AM EDT Office Visit [facility] PULMONARY & CRITICAL CARE MEDICINE [address] [facility] [address] [place] [address] Dana David, APPLIANCE TECHNICIAN [address] [place] [address] 05/03/2025 11:30 AM EST Office [facility] [address] [place] [address] Tammi Goins, APPLIANCE TECHNICIAN 17[address] [place] [address] 07/27/2025 10:30 AM EST Office Visit [facility] GYNECOLOGIC ONCOLOGY [address] [facility] [address] [place] [address] Dara Taylor, APPLIANCE TECHNICIAN [address] [facility] [address] [place] [address] documented as of this encounter Visit Diagnoses Diagnosis Allergic rhinitis documented in this encounter Additional Health Concerns Assessment Noted Time PHQ-2 Depression Total Score: 4 02/03/20 24 11:18 AM EDT documented as of this encounter Care Teams Tinner Automatic Relationship Specialty Start Date End Date Morteza Dixon MD [address] [place] [address] PCP - General Family Medicine 07/10/23 documented as of this encounter
--- OUTSIDE RECORDS SUMMARY | 2025-02-16 12:24 | XMS_ITS | Encounter Summary ---
Author Organization [facility] Address [address] [place] [address] Care Team Providers Care Director Of Pupil Personnel Program Name Role Phone Morteza Dixon MD Primary Care Provider +1- [phone] Encounter Details Date Type Department Care Team (Latest Contact Info) Description 02/01/2025 Travel Social History Tobacco Use Types Packs/Day Years [...] or training? Not on file Preferred Language Ethiopian 09/05/2023 PHQ-2 Answer Date Recorded Patient Health [...] Info) Description 03/16/2025 10:45 AM EDT Registration [facility] PULMONARY & CRITICAL CARE MEDICINE [address] [facility] [address] [place] [address] 03/16/2025 11:00 AM EDT Office Visit [facility] PULMONARY & CRITICAL CARE MEDICINE [address] [facility] [address] [place] [address] Dana David, SLURRY WORKER [address] [place] [address] 05/03/2025 11:30 AM EST Office Visit [facility] [address] [place] [address] Tammi Goins, SLURRY WORKER [address] [place] [address] 07/27/2025 10:30 AM EST Office Visit [facility] GYNECOLOGIC ONCOLOGY [address] [facility] [address] [place] [address] Dara Taylor, SLURRY WORKER [address] [facility] [address] [place] [address] documented as of this encounter Visit Diagnoses Not on filedocumented in this encounter Additional Health Concerns Assessment Noted Time PHQ-2 Depression Total Score: 4 02/03/20 24 11:18 AM EDT documented as of this encounter Care Teams Director Of Pupil Personnel Program Relationship Specialty Start Date End Date Morteza Dixon MD [address] [place] [address] PCP - General Family Medicine 07/10/23 documented as of this encounter
--- OUTSIDE RECORDS SUMMARY | 2025-02-16 12:24 | XMS_ITS | Encounter Summary ---
[facility] Address [address] [place] [address] Care Team Providers Care Nursing Unit Clerk Name Role Phone Morteza Dixon MD Primary Care Provider +1- [phone] Reason for Visit * Reason Comments Med Refill Encounter Details Date Type Department Care Team (Late st Contact Info) Description 01/22/2025 Refill [facility] PULMONARY & CRITICAL CARE MEDICINE [address] [place] [address] Jigar Roth MD [address] [place] [id number] Social History Tobacco Use Types Packs/Day Years [...] or training? Not on file Preferred Language Bhutanese 09/05/2023 PHQ-2 Answer Date Recorded Patient Health [...] CENTER PULMONARY & CRITICAL CARE MEDICINE [address] [facility] 240 [place] [address] 03/16/2025 11:00 AM EDT Office Visit [facility] PULMONARY & CRITICAL CARE MEDICINE [address] [facility] [address] [place] [address] Dana David, WARBLE SAW OPERATOR [address] [place] [address] 05/03/2025 11:30 AM EST Office Visit [facility] [address] [place] [address] Tammi Goins, WARBLE SAW OPERATOR [address] [place] [address] 07/27/2025 10:30 AM EST Office Visit [facility] GYNECOLOGIC ONCOLOGY [address] [facility] [address] [place] [address] Dara Taylor, WARBLE SAW OPERATOR [address]00 [facility] [address] [place] [address] documented as of this encounter Visit Diagnoses Not on filedocumented in this encounter Additional Health Concerns Assessment Noted Time PHQ-2 Depression Total Score: 4 02/03/20 24 11:18 AM EDT documented as of this encounter Care Teams Nursing Unit Clerk Relationship Specialty Start Date End Date Morteza Dixon MD [address] [place] [address] PCP - General Family Medicine 07/10/23 documented as of this encounter
--- OUTSIDE RECORDS SUMMARY | 2025-02-16 12:24 | XMS_ITS | Encounter Summary ---
[facility] Organization [facility] Address [address] [place] [address] Care Team Providers Care Vice Admiral Name Role Phone Morteza Dixon MD Primary Care Provider +1- [phone] Reason for Visit * Reason Comments Med Refill Encounter Details Date Type Department Care Team (Late st Contact Info) Description 12/10/2024 Refill [facility] PULMONARY & CRITICAL CARE MEDICINE [address] [place] [address] Jigar Roth MD [address] [place] [id number] Social History Tobacco Use Types Packs/Day Years [...] or training? Not on file Preferred Language Dominican 09/05/2023 PHQ-2 Answer Date Recorded Patient Health [...] CENTER PULMONARY & CRITICAL CARE MEDICINE 3000 [facility] [address] [place] [address] 03/16/2025 11:00 AM EDT Office Visit [facility] PULMONARY & CRITICAL CARE MEDICINE [address] [facility] [address] [place] [address] Dana David, TRANSFORMER BUILDER [address] [place] [address] 05/03/2025 11:30 AM EST Office Visit [facility] [address] [place] [address] Tammi Goins, TRANSFORMER BUILDER [address] [place] [address] 07/27/2025 10:30 AM EST Office Visit [facility] GYNECOLOGIC ONCOLOGY [address] [facility] [address] [place] [address] Dara Taylor, TRANSFORMER BUILDER [address] [facility] [address] [place] [address] documented as of this encounter Visit Diagnoses Not on filedocumented in this encounter Additional Health Concerns Assessment Noted Time PHQ-2 Depression Total Score: 4 02/03/20 24 11:18 AM EDT documented as of this encounter Care Teams Vice Admiral Relationship Specialty Start Date End Date Morteza Dixon MD [address] [place] [address] PCP - General Family Medicine 07/10/23 documented as of this encounter
--- OUTSIDE RECORDS SUMMARY | 2025-02-16 12:24 | XMS_ITS | Patient Health Record ---
Author Organization [facility] Address [address] [facility] [address] [place] [address] Care Team Providers Care Assisted Living Coordinator Name Role Phone Gildardo Velasquez Primary Care Provider Katie Urbina Unavailable [phone] GILDARDO Velasquez APRN Unavailable Unavailable Migration, Provider Unavailable Unavailable Allergies Allergen (clinical drug ingredient) Drug/Non Drug Allergy documented on EMR Reaction Allergy Type Onset Date Status LEVAQUIN (uncoded) Unknown Allergy A ctive linezolid Zyvox Unknown Drug Allergy Active Medications Medication SIG (Take, Route, Frequency, Duration) Notes Start Date End Date Status Montelukast Sodium 10 MG 1 tab(s) orally once a day; Duration: 90 Active busPIRone HCl 10 MG 1 tab(s) orally bid Active Advair Diskus 500 MCG-50 MCG 1 PUFF(S) INHALED 2 TIMES A DAY *Please review and pick correct strength-formulati on from [employer] options. If intended option is not shown, discontinue and re-order from Quick Search* Active Citalopram Hydrobromide 10 MG 1 tab(s) orally once a day; Duration: 90 days 09/22/2021 Active Vitamin D3 25 MCG (1000 UT) 1 tab(s) orally once a day Active Azithromycin 250 MG 1 tab(s) orally 3 times a week Active Aspirin 81 MG 1 tab(s) orally once a week 08/30/2015 Active Omeprazole 20 MG 1 cap(s) orally every other day Active Mucinex 600 MG 1 tab(s) orally every 12 hours prn Active RHINOCORT ALLERGY 32 MCG/INH 1 SPRAY(S) INTRANASALLY BID *Please review for potential replacement for e-prescription and drug interaction check* Active Xyzal Allergy 24HR 5 MG 1 po qd Active Ventolin HFA 108 (90 Base) MCG/ACT 2 puff(s) inhaled 4 times a day Active Immunizations Vaccine Route Administration Date Status Comme nts Prevnar PCV-13 (Pneumococcal conjugate 13) IM Intramuscular 08/31/2016 Administered PPD Unknown 09/13/2006 Administered Pneumovax 23 IM Intramuscular 08/18/2015 Administered H1N1 Vaccine IM Intramuscular 05/23/2009 Administered Problems Problem Type SNOMED Code ICD Code Onset Dates Problem Status W/U Status Risk Notes Problem Seasonal allergic rhinitis (883188256) Other seasonal allergic rhinitis (J30.2) Active confirmed Problem Allergic rhinitis (75781762) Other allergic rhinitis (J30.89) Active confirmed Problem Mucopurulent chronic bronchitis (46290765) Mucopurulent chronic bronchitis (J41.1) Active confirmed Problem Diverticulitis (13030395) Diverticulitis (K57.92) Active confirmed Problem Gastroesophageal reflux disease with esophagitis (disorder) (863773762) GERD with esophagitis (K21.0) Active confirmed Problem Mixed anxiety and depressive disorder (010118403) Anxiety associated with depression (F41.8) Active confirmed Problem Abnormal mammogram (364025748) Abnormal mammogram (R92.8) Active confirmed Problem Acute exacerbation of bronchiectasis (425491788) Bronchiectasis with acute exacerbation (J47.1) Active confirmed Problem Body mass index 20-24 - normal (762968247) BMI 20.0-20.9, adult (Z68.20) Active confirmed Problem Essential hypertension (57715130) White coat syndrome with hypertension (I10) Active confirmed Problem Age-related osteoporosis (529600180) Osteoporosis, post-menopausal (M81.0) Active confirmed Problem Rectovaginal hernia (621699745) Rectovaginal hernia (N81.6) Active confirmed Encounters Encounter Location Date Provider Diagnosis [facility] [address] [place] [address] 09/12/2024 Provider Migration Anxiety associated with depression F41.8 Assessments Encounter Date Diagnosis (ICD Code) Assessment Notes Treatment Notes Treatment Clinical Notes Section Notes 09/12/2024 Anxiety associated with depression (ICD-10 - F41.8) Plan Of Treatment Pending Test Test Name Order Date Urinalysis 04/28/2015 EKG : In House 09/25/2006 C-CBC 08/18/2015 C-CMP 08/18/2015 C-CMP 08/31/2016 C-CMP 12/30/2015 C-LIPID PANEL 12/30/2015 C-LIPID PANEL 08/31/2016 C-LIPID PANEL 08/18/2015 C-VITAMIN B12 08/18/2015 Urine Culture, Routine 04/28/2015 M-Vitamin D 25 Hydroxy 12/09/2019 M-Vitamin D 25 Hydroxy 12/28/2020 Mammogram : Diagnostic, Left 01/19/2021 Insurance Providers Payer Name Payer Address Payer Phone Subscriber Number Group Number Insured Name Patient Relationship to Insured Coverage Start Date Coverage End Date [employer] [address] [address] [place] [address] [id number] Perla Taveras Self - patient is the insured [facility] [address] [address] [place] [address] [phone] [id number] Perla Taveras Self - patient is the insured 5 Medications Administered Medication Instructions Date of Administration Dosage Notes Kenalog 40mg 11/08/2016 40 mg Kenalog 40mg 07/29/2017 40 mg Kenalog 04/14/2015 1 mL Medical (General) History Medical History History ICD Code Anxiety with depression mycobacterium lung abscess Bladder incontinence Esophagitis with H. pylori Mild Hyperlipidemia COPD/Bronchiectasis Osteoporosis Surgical History Surgery Date(Month/Year) Bronchopscopy w/ biopsy of lung abscess 2006 EGD - reapeated 2018 with reactive gastr itiis 2015 Colonoscopy - 2016 and 8 with tubular adenoma - c-scope 03/30 with 5 polpys 2013 colon polyps removed 2016 Hospitalization History Reason Date(Month/Year) colon polyps removed 2016
--- OUTSIDE RECORDS SUMMARY | 2025-02-16 12:24 | XMS_ITS | Clinical Summary ---
Author Organization [facility] Address [address] [place] [address] Care Team Providers Care Anesthesiology Faculty Name Role Phone Morteza Dixon MD Primary Care Provider +1- [phone] Allergies Active Allergy Reactions Criticality Noted Date Comments Cefoxitin Hives,Rash Low 11/15/2008 Levofloxacin Other (See Comments) Medium 02/03/2016 Made jaw twitch Voriconazole Other (See Comments) Medium 02/03/2016 TOES NUMB Linezolid Rash Medium 02/03/2016 Medications omeprazole (PriLOSEC) 20 MG capsule 1 capsule Every Other Day. 016 Active citalopram (CeleXA) 20 MG tablet Take 1 tablet by mouth Daily. 016 Active Multiple Vitamin (MULTI VITAMIN DAILY) tablet Take 1 tablet by mouth Daily. Active budesonide (RINOCORT AQUA) 32 MCG/ACT nasal spray 1 spray each nostril daily 1 bottle 6 017 Active Additional Information Patient taking differently: 1 spray Daily, 1 spray each nostril daily, Informant: Pharmacy, Reported on 02/01/2025 calcium citrate-vitamin d (CALCITRATE) 315-250 MG-UNIT tablet tablet Take 1 tablet by mouth 2 (Two) Times a Day. Active busPIRone (BUSPAR) 10 MG tablet Take 1 tablet by mouth 2 (Two) Times a Day. Active metoprolol succinate XL (TOPROL-XL) 50 MG 24 hr tablet Take by mouth Every Night. 023 Active guaiFENesin (Mucinex) 600 MG 12 hr tablet Take 2 tablets by mouth 2 (Two) Times a Day. 60 tablet 11 023 Active sodium chloride 3 % nebulizer solutionIndicatio ns:Idiopathic bronchiectasis Take 4 mL by nebulization 2 (Two) Times a Day. 120 mL 12 024 Active Fluticasone-Umecl idin-Vilant (Trelegy Ellipta) 100-62.5-25 MCG/ACT inhalerIndication s:Idiopathic bronchiectasis INHALE 1 PUFF ONCE DAILY 30 each 3 025 Active azithromycin (ZITHROMAX) 500 MG tabletIndications :Idiopathic bronchiectasis Take 1 tablet by mouth 3 (Three) Times a Week. Take one pill on Saturday, Saturday, and Saturday FOR BRONCHIECTASIS, CINEMA OPERATOR USE 36 tablet 3 025 Active albuterol (PROVENTIL) (2.5 MG/3ML) 0.083% nebulizer solution Take 2.5 mg by nebulization 4 (Four) Times a Day As Needed for Wheezing (DX CODE J44.9). 360 each 3 025 Active levocetirizine (XYZAL) 5 MG tabletIndications :Seasonal and perennial allergic rhinitis Take 1 tablet by mouth once daily 90 tablet 025 Active albuterol sulfate HFA 108 (90 Base) MCG/ACT inhalerIndication s:Idiopathic bronchiectasis,Se asonal and perennial allergic rhinitis Inhale 2 puffs Every 4 (Four) Hours As Needed for Wheezing. 18 g 11 025 Active montelukast (SINGULAIR) 10 MG tablet Take 1 tablet by mouth once daily 90 tablet 025 Active montelukast (SINGULAIR) 10 MG tablet Take 1 tablet by mouth once daily 90 tablet 025 2024 Discontinued Active Problems Problem Noted Date Diagnosed Date [...] antimicrobial therapy and surgery at that time. Resolved Problems Problem Noted Date Diagnosed Date Resolved Date Uterine cancer 08/23/2023 02/03/2024 Encounters Date Type Department Care Team Description 02/01/2025 11:00 AM EDT Lab [facility] [address] [place] [address] History of endometrial cancer 02/01/2025 10:30 AM EDT Office Visit [facility] GYNECOLOGIC ONCOLOGY [address] [facility] [address] [place] [address] Dara Taylor APRN Genitourinary syndrome of menopause (Primary Dx); History of endometrial cancer 02/01/2025 Travel 01/22/2025 Refill [facility] PULMONARY & CRITICAL CARE MEDICINE [address] [facility] [place] [address] Jigar Roth MD 01/11/2025 Refill [facility] PULMONARY & CRITICAL CARE MEDICINE [address] [facility] [address] [place] [address] Dana David, RICE FARMWORKER Bronchiectasis (Primary Dx); Allergic rhinitis 01/05/2025 Refill [facility] PULMONARY & CRITICAL CARE MEDICINE [address] [facility] [place] [address] Jigar Roth MD Allergic rhinitis 12/15/2024 Refill [facility] PULMONARY & CRITICAL CARE MEDICINE [address] [facility] [place] [address] Jigar Roth MD 12/14/2024 Refill [facility] PULMONARY & CRITICAL CARE MEDICINE [address] [facility] [address] [place] [address] Dana David, RICE FARMWORKER Idiopathic bronchiectasis (Primary Dx) 12/10/[facility] [address] [facility] [place] [address] Jigar Roth MD from Last 3 Months Immunizations Immunization Administration Dates Next Due COVID-19 (MODERNA) 1st,2nd,3 rd Dose Monovalent 03/02/2021,08/04/2020,07/07/2020 COVID-19 (MODERNA) BIVALENT 12+YRS 03/13/2022 Fluad Quad 65+ 03/04/2023 Fluzone High-Dose 65+YRS 03/13/2024,03/09/2019,0 03/07/2018 Fluzone High-Dose 65+yrs 03/29/2022,03/21/2021 H1N1 All Forms 05/23/2009 Hepatitis A 12/07/2018,05/18/2018 Influenza, Unspecified 03/10/2020 PPD - Urgent Care Use Only 09/13/2006 PPD Test 09/13/2006 Pneumococcal Conjugate 13-Valent (PCV13) 017 Pneumococcal Polysaccharide (PPSV23) 08/18/2015 Shingrix 12/26/2018,2018 Family History Medical History Relation Name Comments Cancer Brother Tuberculosis Father Breast cancer Mother Hypertension Mother Colon cancer Sister Relation Name Status Comments Brother Father (Age 89) Mother Sister Social History Tobacco Use Types Packs/Day Years [...] on file Sexual Orientation Not on file Last Filed Vital Signs Vital Sign Reading [...] Mass Index 21.07 02/01/2025 10:13 AM EDT Plan of Treatment Upcoming Encounters Date Type Department Care Team (Late st Contact Info) Description 03/16/2025 10:45 AM EDT Registration [facility] PULMONARY & CRITICAL CARE MEDICINE [address] [facility] [address] [place] [address] 03/16/2025 11:00 AM EDT Office Visit [facility] PULMONARY & CRITICAL CARE MEDICINE [address] [facility] [address] [place] [address] Dana David, RICE FARMWORKER [address] [place] [address] 05/03/2025 11:30 AM EST Office Visit [facility] [address] [place] [address] Tammi Goins, RICE FARMWORKER [address] [place] [address] 07/27/2025 10:30 AM EST Office Visit [facility] GYNECOLOGIC ONCOLOGY [address] [facility] [address] [place] [address] Dara Taylor, RICE FARMWORKER [address] [facility] [address] [place] [address] Health Maintenance Due Date Last Done Comments TDAP/TD VACCINES (1 - Tdap) 1968 COLOGUARD 1994 COLON CANCER SCREENING 5 YEA R SIGMOIDOSCOPY 1994 CT COLONOGRAPHY 1994 FECAL OCCULT BLOOD TEST 1994 FIT Testing (1 year) 1994 ANNUAL WELLNESS VISIT 10/01/2016 HEPATITIS C SCREENING 10/01/2016 DXA SCAN 09/06/2024 09/06/2022, 08/10, 08/11/2019, Additional history exists RSV Vaccine - Adults (1 - 1- dose 75+ series) 2024 COVID-19 Vaccine (7 - Modern a risk ) 02/08/2025 03/03/2024, 03/19/2023, 03/13/2022, Additional history exists INFLUENZA VACCINE 03/10/2025 03/13/2024, , 03/04/2023, Additional history exists COLONOSCOPY 04/13/2031 04/13/2021 COLORECTAL CANCER SCREENING 04/13/2031 Pneumococcal Vaccine 50+ Completed 08/31/2016, 08/08 ZOSTER VACCINE Completed 12/26/2018, 2018 MAMMOGRAM Discontinued 09/25/2024, 09/08, 08/29/2023, Additional history exists Medical Devices Implanted Type Area Machine Welt Butter Device Identifier Shelf Expiration Date Model / Serial / Lot Dev Wnd/Cls Tiss Stratafix Spiralpds Ct2 Pls Abs 2/0 23cm - [id number] Implanted:Qty : 1 on 09/12/2023 by Echo Schulz MD at [facility] Implant N/A: Abdomen [employer] DIV [employer] [id number] / / Dev Wnd/Cls Tiss Stratafix Spiralpds Ct2 Pls Abs 2/0 23cm - [id number] Implanted:Qty : 1 on 09/12/2023 by Echo Schulz MD at [facility] Implant N/A: Abdomen [employer] J [id number] / / Procedures Procedure Name Priority Date/Time Associated Diagnosis Comments CA 125 Routine 02/01/2025 11:01 AM EDT History of endometrial cancer from Last 3 Months Results * (ABNORMAL) CA 125 (02/01/2025 11:01 AM EDT) CA 125 80.2(H) 0.0 - 38.1 U/mL 02/01/2025 3:24 PM EDT [facility] Blood Venipuncture / Unknown 02/01/2025 11:01 AM EDT 02/01/2025 11:01 AM EDT Narrative [facility] - 02/01/2025 3:24 PM EDT Results may be falsely decreased if patient taking Biotin. Testing Method: [employer] Electrochemiluminescence Immunoassay(ECLIA) Values obtained with different assay methods or kits cannot be used interchangeably. Dara Taylor RICE FARMWORKER LAB BLOOD ORDERABLES F inal Result [facility]
[address] [place] [address], from Last 3 Months Insurance [employer] Member Subscriber Plan / Payer (Ef fective 2014-Present) Name:Perla Taveras Member ID:[id number] Relation to Subscriber:Self Name:TaverasPerla Subscriber ID:[id number] Payer ID:[id number] Group ID:Not on file Type:Not on file Address: [address] Care Teams Anesthesiology Faculty Relationship Specialty Start Date End Date Morteza Dixon MD [address] [facility] [address] [place] [address] PCP - General Family Medicine 07/10/23
--- OUTSIDE RECORDS SUMMARY | 2025-02-16 12:24 | XMS_ITS | Clinical Summary ---
Author Organization [facility] Address [address] [place] [address] Phone Care Team Providers Care Entry Level Java Developer Name Role Phone Justice Law MD Unavailable [ ] Conditions or Problems Problem Name Problem Code Onset Date Status Entry Date Provider Comment Standard Description Annotate PNEUMONIA IN ASPERGILLOSI S 428767206 (SNOMED CT) 07/26 Active 07/26 Roxanne Akin Pneumonia in aspergillosis ASPERGILLUS B44.9 (ICD-10-CM ) 07/22 Active 07/22 Roxanne Akin Aspergillosis, unspecified C O P D [id number] (SNOMED CT) 07/24 Active 07/24 Justice Law MD Chronic obstructive pulmonary disease PULMONARY ASPERGILLUS B44.9 (ICD-10-CM ) 07/22 Correction 07/22 Alexus Santos Aspergillosis, unspecified PNEUMONIA 794769977 (SNOMED CT) 07/22 Active 07/22 Alexus Santos Pneumonia H/O M. ABSCESSUS A31.8 (ICD-10-CM ) 07/22 Active 07/22 Alexus Santos Other mycobacterial infections PERIPHERAL NEUROPATHY, MEDICATION RELATED G62.0 (ICD-10-CM ) 07/22 Active 07/22 Alexus Santos Drug-induced polyneuropathy Medications Medication Instructions Start Date Stop Date Generic Name ND Provider CLARITIN TABS 1 LORATADINE TABS [id number] Justice Law MD PROAIR HFA AEROSOL SOLUTION 2 ALBUTEROL SULFATE AERS [id number] Alexus Santos DULERA AERO 2 MOMETASONE FURO-FORMOTEROL FUM AERO [id number] Alexus Santos CELEXA TABS 2 CITALOPRAM HYDROBROMIDE TABS [id number] Alexus Santos Medications Administered No information available. Allergies, Adverse Reactions, Alerts Allergy Name Reaction Description Start Date Severity Statu s Provider SUBOXONE Moderate Active Alexus Ja mes ZYVOX Moderate Active Alexus Ja mes LEVAQUIN Moderate Active Alexus Ja mes CEFOXITIN SODIUM Moderate Active De joanna Santos Results Date Name Value Unit Range Flag Description Clinical Lists Update: Prelo ad SMOK STATUS former smoker Tob acco smoking status Lab Report: Aspergillus gala ctomannan Ag ASP GAL AG 0.11 Index 0.00-0.49 Asper gillus galactomannose level Office Visit: rm1 MEDS REVIEW Done Documenta tion of current medications (procedure) Plan of Care Type Date Detail Pending order Other Pending order X-Ray, Chest, PA & Lateral Procedures No information available. Vital Signs Date Name Value Unit Description BMI (Body Mass Index) 22.95 kg/m2 Bod y Mass Index (Ratio) Body Temperature 98.4 [degF] temperat ure E&M BP Diastolic 88 mm[Hg] blood pressu re, diastolic BP Systolic 152 mm[Hg] blood pressur e, systolic Heart Rate 72 /min pulse rate Height 67 [in_us] height E&M Respiratory Rate 20 /min respirat ory rate E&M Weight Measured 146 [lb_av] weight E& M Weight Measured 146 [lb_av] weight E& M Immunizations No information available. Advance Directives No information available.
--- OUTSIDE RECORDS SUMMARY | 2025-02-16 12:24 | XMS_ITS | Encounter Summary ---
Author Organization [facility] Address [address] [place] [address] Care Team Providers Care Comptroller Name Role Phone Morteza Dixon MD Primary Care Provider [phone] Reason for Visit * Reason Onset Date Comments Med Refill 01/11/2025 Encounter Details Date Type Department Care Team (Late st Contact Info) Description 01/11/2025 Refill [facility] PULMONARY & CRITICAL CARE MEDICINE [address] [place] [address] Dana David, REAL ESTATE APPRAISER SUPERVISOR [address] [place] [address] Bronchiectasis (Primary Dx); Allergic rhinitis Social History Tobacco Use Types [...] or training? Not on file Preferred Language Slovenian 09/05/2023 PHQ-2 Answer Date Recorded Patient Health Questionnaire-9 Score 0 08/04/2024 Comments No Sex and Gender Information Value Date Recorded Sex Assigned at Female 10/28/2024 11:34 AM EDT Legal Sex Female 1:14 PM EDT Gender Identity Not on file Sexual Orientation Not on file documented as of this encounter Miscellaneous Notes * Telephone Encounter - She Da Silva MA - 01/11/2025 2:09 PM EDT Refilled Ventolin rescue inhaler per pt phone call. documented in this encounter Plan of Treatment Upcoming Encounters Date Type Department Care Team (Late st Contact Info) Description 03/16/2025 10:45 AM EDT Registration [facility] PULMONARY & CRITICAL CARE MEDICINE [address] [place] [phone] 03/16/2025 11:00 AM EDT Office Visit [facility] PULMONARY & CRITICAL CARE MEDICINE [address] [place] [address] Dana David, REAL ESTATE APPRAISER SUPERVISOR [address] [phone] 05/03/2025 11:30 AM EST Office Visit [facility] [address] [place] [address] Tammi Goins, REAL ESTATE APPRAISER SUPERVISOR [address] [place] [address] 07/27/2025 10:30 AM EST Office Visit [facility] GYNECOLOGIC ONCOLOGY [address] [place] [address] Dara Taylor APRN [address] [place] [address] documented as of this encounter Visit Diagnoses Diagnosis Bronchiectasis- Primary Allergic rhinitis documented in this encounter Additional Health Concerns Assessment Noted Time PHQ-2 Depression Total Score: 4 02/03/20 24 11:18 AM EDT documented as of this encounter Care Teams Comptroller Relationship Specialty Start Date End Date Morteza Dixon MD [address] [place] [address] PCP - General Family Medicine 07/10/23 documented as of this encounter
[2025-02-17 10:18] LABS: Hepatitis B Surface Antigen Negative (Negative)
== END 2025-02-15 23:59 | disposition home or self-care (01) ==
LOC: LAB.DROPOF 02-16 12:22
PROVIDERS: PCP Nurse Practitioner Family; Visit Provider Nurse Practitioner Family
DX: J44.9 Chronic obstructive pulmonary disease, unspecified (principal); I10 Essential (primary) hypertension; Z11.4 Encounter for screening for human immunodeficiency virus [HIV]; Z11.59 Encounter for screening for other viral diseases
CPT/HCPCS: 80053; 80061; 84443; 85025; 86803; 87340; 87389

== ENCOUNTER 2025-04-07 06:16 | Day surgery (SDC) | payer MEDICARE, OTHER, SELFPAY ==
--- NOTE | 2025-04-01 15:52 | EXP.HP ---
History of Present Illness *Admission Date: 04/07/25 *History of present illness: Mrs. Taveras is a 74-year-old female who is here for diagnostic EGD. She does have a history of functional dyspepsia and IBS. Her EGD in 2018 found nonerosive GERD with mild esophageal dysmotility and bile reflux. She has been on omeprazole which helps to control her reflux. The patient has recently developed dysphagia and trouble swallowing. She has had 2 episodes of food impaction which occurs with dry meats. She has had to regurgitate the food. She has had an increase in heartburn and reflux. The patient does have a history of large and advanced adenomatous colon polyps and underwent right hemicolectomy (Dr. Faraz Guillen). The patient also has had pelvic floor surgery. The examination is deemed medically necessary for diagnostic EGD. The patient has been seen, interviewed and examined prior to the procedure by both myself and the anesthesia provider. [facility] Disclaimer: The information contained in this section may have been updated after the patient was seen, as this information can be updated by other users. Medical History Essential (primary) hypertension Malignant neoplasm of endometrium COPD (chronic obstructive pulmonary disease) Atrial tachycardia PAC (premature atrial contraction) Adult bronchiectasis Abnormal resting ECG findings Irregular heart rate Polyp of colon Chronic GERD Chronic lung disease Surgical History History of hysterectomy History of lung biopsy Hx of breast biopsy Family History Mother Coronary artery disease Sister Colon cancer Other Gallbladder disease Social History Smoking Status: Never smoker second hand exposure: No alcohol intake: never current occupational status: retired Travel in the last 8 weeks?: None household members: spouse housing: house marital status: caffeine: Yes Have you lived/traveled outside US in past 30 days?: No Contact w/someone who lives/traveled outside US past 30 days?: No Exposure to someone with infectious disease in past 14 days?: No Do you have a fever (greater than 100.4 F or 38 C)?: No Have you tested positive for COVID-19?: No Exposed to someone with COVID-19 in past 14 days?: No Do you have a sore throat?: No Do you have a cough?: No Do you have any weakness?: No Are you experiencing any nausea/vomitting?: No Do you have any diarrhea?: No Are you experiencing any unusual bleeding?: No Do you have any muscle aches/pain?: No Do you have any abdominal pain?: No Are you experiencing loss of taste or smell?: No Other Medical History Have you received the Pneumonia Vaccine: Yes Review of Systems Review of Systems Review of systems (narrative): Negative *Cardiovascular Comments: Negative *Gastrointestinal Comments: Negative *Genitourinary Comments: Negative *Musculoskeletal Comments: Negative *Neurologic Comments: Negative Meds Home Medications and Allergies Home Medications ?Medication ?Instructions ?Recorded ?Confirmed ?Type levocetirizine 5 mg tablet (Xyzal) 5 mg PO DAILY allergies 12/30/17 04/07/25 History montelukast 10 mg tablet 10 mg PO PM allergies 12/30/17 04/07/25 History multivitamin 1 ea PO DAILY Supplement 12/30/17 04/07/25 History albuterol sulfate 2.5 mg/3 mL 2.5 mg inhalation QID 02/16/22 04/07/25 History (0.083 %) solution for nebulization albuterol sulfate 90 mcg/actuation 180 mcg inhalation Q6H PRN . 02/16/22 04/07/25 History breath activated powder inhaler,sensor (Proair Digihaler) azithromycin 500 mg tablet 500 mg PO .3 times a week 02/16/22 04/07/25 History budesonide 32 mcg/actuation nasal 1 spray intranasal DAILY 02/16/22 04/07/25 History spray mecobalamin (vitamin B12) 1,000 1,000 mcg PO DAILY 02/16/22 04/07/25 History mcg chewable tablet (B12 Active) calcium carbonate-vitamin 1 tab PO DAILY 08/09/22 04/07/25 History D2-minerals chewable tablet omeprazole 20 mg capsule,delayed 20 mg PO DAILY stomach #90 caps 03/02/24 04/07/25 Rx release fluticasone fur. 100 mcg-umeclid 1 inh inhalation DAILY 08/17/24 04/07/25 History 62.5 mcg-vilant 25 mcg inhalat.powder (Trelegy Ellipta) citalopram 20 mg tablet 40 mg (2 x 20 mg) PO DAILY 90 days 03/18/25 04/07/25 Rx #180 tabs polyethylene glycol 3350 17 17 g PO DAILY 03/24/25 04/07/25 History gram/dose oral powder (Miralax) psyllium husk 3.4 gram/5.4 gram 1 tbsp PO DAILY 03/24/25 04/07/25 History oral powder (Metamucil) buspirone 10 mg tablet See Rx Instructions .Route 03/26/25 04/07/25 Rx .COMPLEX #180 tabs guaifenesin 1,200 mg tablet, 1,200 mg PO BID 04/02/25 04/07/25 History extended release 12 hr (Mucinex) sodium chloride 3 % for 4 ml inhalation BID 04/02/25 04/07/25 History nebulization metoprolol succinate 50 mg See Rx Instructions .Route 04/05/25 04/07/25 Rx tablet,extended release 24 hr .COMPLEX #90 tabs New Prescriptions to Start Prescriptions: Allergies Allergy/AdvReac Type Severity Reaction Status Date / Time cefoxitin Allergy Intermediate Numbness Verified 04/07/25 07:12 voriconazole Allergy Intermediate Numbness Verified 04/07/25 07:12 levofloxacin (From LEVAQUIN) Allergy Unknown NUMBNESS Verified 04/07/25 07:12 TOES/FEET linezolid (From ZYVOX) Allergy Unknown I-RASH Verified 04/07/25 07:12 Exam *Routine HEENT Exam Head: Present normocephalic Eye: Present EOMI and PERRL ENT: Present mucous membranes moist *Routine Neck Exam Neck: Present supple *Routine Respiratory Exam Respiratory: Present CTA bilaterally *Routine Cardiovascular Exam Cardiovascular: Present RRR *Routine Abdominal Exam Abdominal: Present soft and normoactive bowel sounds; Absent tenderness *Routine Rectal Exam Rectal:: deferred *Routine Genitalia Exam Genitalia:: deferred *Routine Extremities Exam Extremities: Absent cyanosis, clubbing or edema *Routine Skin Exam Skin: Present warm; Absent rash *Routine Neurological Exam Neurological: Present alert and oriented X3 Assessment and Plan *Assessment and plan (1) Dysphagia: Status: Acute Category: Medical Code(s): R13.10 - Dysphagia, unspecified (2) Regurgitation of food: Status: Acute Category: Medical Code(s): R11.10 - Vomiting, unspecified (3) Choking: Status: Acute Category: Medical Code(s): T17.308A - Unspecified foreign body in larynx causing other injury, initial encounter (4) Heartburn: Status: Acute Category: Medical Code(s): R12 - Heartburn Plan A/P: 1. Dysphagia/choking with regurgitation of food and heartburn is the preprocedural diagnosis. The patient will be anesthetized/sedated using MAC sedation. The patient has been seen and examined. Cardiac and lung assessment prior to the examination is stable. Proceed with planned EGD.
[2025-04-02 12:36] VITALS: BMI 20.9
[2025-04-07] VITALS (8 sets, daily range): BP systolic 104–156; BP diastolic 58–84; PULSE 68–76; RESP 14–18; TEMP 36.2–36.3; O2SAT 93–96; BMI 20.9
--- NOTE | 2025-04-07 06:25 | P.PCN_ITS ---
[facility] Procedure Note Date: 04/07/25 Time: 08:12 Procedure Note:: Upper Endoscopy Procedure Report: Esophagogastroduodenoscopy with cold biopsies and TTS balloon dilation Endoscopost: Derek Prieto II, MD Referring Physician: Morteza Dixon MD Date of Procedure: April 07, 2025 Equipment: Olympus GIF-1100 standard upper endoscope Sedation: MAC sedation Indications: Mrs. Taveras is a 74-year-old female who is here for diagnostic EGD. The patient has recently developed dysphagia and trouble swallowing. She has had 2 episodes of food impaction which occurs with dry meats. She has had to regurgitate the food. She has had an increase in heartburn and reflux. The patient has noted some increased belching but no bloating. She reports no heartburn or globus sensation. She reports regular bowel function. She does have a history of functional dyspepsia and IBS. Her EGD in 2018 found nonerosive GERD with mild esophageal dysmotility and bile reflux. She has been on omeprazole which helps to control her reflux. The patient does have a history of large and advanced adenomatous colon polyps and underwent right hemicolectomy (Dr. Faraz Guillen). The patient also has had pelvic floor surgery. The examination is deemed medically necessary for diagnostic EGD. Procedure: Prior to the procedure, a history and physical exam was performed, and patient's medications and allergies were reviewed. The risks, benefits and alternatives of the sedation and procedure were discussed with the patient. All questions were answered and informed consent was obtained. The patient was brought to the procedure room. Patient identification and proposed procedure were verified by the physician and the nurse. The patient was placed in a left lateral decubitus position and the scope was passed under direct vision. Throughout the procedure, the patient's blood pressure, pulse, and oxygen saturations were monitored continuously. The upper GI endoscopy was accomplished without difficulty. The patient tolerated the procedure well. Findings: The scope was passed directly into the upper esophagus and advanced to the third portion of the duodenum. The post bulbar duodenum, ampulla and duodenal bulb were normal with normal mucosa and conniventes. 2 cold biopsies were taken from the second portion of the duodenum for the disaccharidase assay. There was a 2 to 3 mm flat polyp in the second portion of the duodenum that was removed via cold biopsy. The scope was withdrawn through a normal duodenal bulb and pylorus into the stomach. There was bile reflux with mild to moderate linear reactive gastropathy of the antrum and body. Cold biopsies were taken from the antrum. The fundus of the stomach was normal. Upon retroflexion there was a small 2 cm hiatal hernia. The scope was then withdrawn into the esophagus. There was no evidence of reflux esophagitis or Mckay's. There were no esophageal rings or corrugation. There were tertiary contractions and evidence of mild esophageal dysmotility. The entire esophagus was dilated to 60 Lao/20 mm and there was a proximal esophageal web and cricopharyngeal spasm. The remainder of the esophageal mucosa was normal. Impression: 1. Cricopharyngeal spasm with proximal esophageal web 2. Nonerosive GERD with mild esophageal dysmotility and small 2 cm hiatal hernia 3. Bile reflux with mild to moderate linear reactive gastropathy Plan: I will follow-up the biopsies and disaccharidase assay. I will discuss the findings with the patient and family.
[2025-04-07] MEDS: LACTATED RINGERS 1000ML 1,000 ML 50 ML IV (07:23)
--- NOTE | 2025-04-07 07:37 | P.PNANES_ITS ---
[facility] Disclaimer: The information contained in this section may have been updated after the patient was seen, as this information can be updated by other users. Medical History Essential (primary) hypertension Malignant neoplasm of endometrium COPD (chronic obstructive pulmonary disease) Atrial tachycardia PAC (premature atrial contraction) Adult bronchiectasis Abnormal resting ECG findings Irregular heart rate Polyp of colon Chronic GERD Chronic lung disease Surgical History History of hysterectomy History of lung biopsy Hx of breast biopsy Family History Mother Coronary artery disease Sister Colon cancer Other Gallbladder disease Social History Smoking Status: Never smoker second hand exposure: No alcohol intake: never current occupational status: retired Travel in the last 8 weeks?: None household members: spouse housing: house marital status: caffeine: Yes Have you lived/traveled outside US in past 30 days?: No Contact w/someone who lives/traveled outside US past 30 days?: No Exposure to someone with infectious disease in past 14 days?: No Do you have a fever (greater than 100.4 F or 38 C)?: No Have you tested positive for COVID-19?: No Exposed to someone with COVID-19 in past 14 days?: No Do you have a sore throat?: No Do you have a cough?: No Do you have any weakness?: No Are you experiencing any nausea/vomitting?: No Do you have any diarrhea?: No Are you experiencing any unusual bleeding?: No Do you have any muscle aches/pain?: No Do you have any abdominal pain?: No Are you experiencing loss of taste or smell?: No [facility] Anesthesia Checklist Patient Identification Patient Identification: Arm Band Structural Data Admitted From: Home Planned Operative Procedure/s: EGD Consent for Planned Operative Procedure(s) Verified: Yes Verified Documents: Surgical Consent and History and Physical NPO Status Verified Time NPO: 00:00 Additional verifications Anesthesia Reactions: No Airway Assessment Mallampati Score:: Class II C-Spine Mobility Assessed: Yes TMJ Mobility Assessed: Yes Dentition: Dentures-good fit (lower partial removed) Neurological Assessment Level of Consciousness: Awake, Alert and Appropriate Anesthesia Plan Anesthesia Risk discussed: Yes Anesthesia Plan: Verified ASA Class: II Anesthesia Type: MAC
[2025-04-12 12:16] LABS: Interpretation Notes (.); Lactase 47.37 (>/= 14.0); Maltase 249.31 (>/= 110.0); Palatinase 16.7 (>/= 8.5); Reference Notes (.); Sucrase 58.24 (>/= 25.0)
== END 2025-04-07 09:25 | disposition home or self-care (01) ==
PROVIDERS: PCP Family Medicine; Visit Provider Internal Medicine Gastroenterology
PROC: 0DJ08ZZ Inspection of Upper Intestinal Tract, Via Natural or Artificial Opening Endoscopic (ICD-10-PCS; CPT 43239; principal; 2025-04-07 08:00)
DX: K21.9 Gastro-esophageal reflux disease without esophagitis (principal); K31.89 Other diseases of stomach and duodenum; K22.4 Dyskinesia of esophagus; K44.9 Diaphragmatic hernia without obstruction or gangrene; K58.9 Irritable bowel syndrome, unspecified; K30 Functional dyspepsia; T17.308A Unspecified foreign body in larynx causing other injury, initial encounter; Z90.49 Acquired absence of other specified parts of digestive tract; J44.9 Chronic obstructive pulmonary disease, unspecified; I10 Essential (primary) hypertension; I47.19 Other supraventricular tachycardia; I49.1 Atrial premature depolarization; Z88.1 Allergy status to other antibiotic agents; Z88.8 Allergy status to other drugs, medicaments and biological substances
CPT/HCPCS: 43239; 43249; 82657; 88305; C1726; J2003; J2704; J7120